=== PATIENT | female | born 1970 | race Caucasian/White ===

== ENCOUNTER 2018-10-10 14:29 | Emergency (ER) | payer MEDICAID, OTHER ==
[~2018-10-10] VITALS: Ht 149.9 cm; Wt 46.7 kg
[2018-10-10 14:52] VITALS: BP 113/78
--- NOTE | 2018-10-10 15:53 | NUR ---
Patient discharged to home in stable condition. Written and verbal after care instructions given. Written prescriptions provided to patient. Patient verbalizes understanding of instruction.
== END 2018-10-10 15:53 | disposition home or self-care (01) ==
LOC: ER 14:29
DX: R10.31 Right lower quadrant pain (principal); R14.0 Abdominal distension (gaseous); L40.9 Psoriasis, unspecified; K21.9 Gastro-esophageal reflux disease without esophagitis; F17.200 Nicotine dependence, unspecified, uncomplicated; Z98.890 Other specified postprocedural states; Z88.8 Allergy status to other drugs, medicaments and biological substances
CPT/HCPCS: Z7502

== ENCOUNTER 2018-11-20 15:12 | Emergency (ER) | payer OTHER ==
[~2018-11-20] VITALS: Ht 167.6 cm; Wt 52.6 kg
[~2018-11-20 15:12] MED LIST: CLOB15OI3 TP; FOLI1TAB16 PO; LEVO112T5 PO; MULT1TAB73 PO; OMEP20CA11 PO; THIA100T70 PO
--- NOTE | 2018-11-20 15:39 | NUR ---
CAME IN FOR ABD PAIN X OCTOBER, ADMITTED AT [facility], DISCHARGED ON 11/09/18. TO ER BED 10, HOOKED TO MONITOR, CHANGED TO GOWN, PROVIDED W WARM BLANKET, AWAITING MD HEATH.
--- NOTE | 2018-11-20 15:50 | NUR ---
PA FOSTER AT BEDSIDE
[2018-11-20 16:10] LABS: APPEARANCE,URINE Slightly Cloudy (CLEAR); BILIRUBIN,URINE LARGE (NEGATIVE); BLOOD, URINE Negative Ery/uL (NEGATIVE); COLOR,URINE Amber (YELLOW); KETONES,URINE 15 (NEGATIVE); LEUKOCYTE ESTERASE ,URINE Trace (NEGATIVE); NITRITE, URINE Positive (NEGATIVE); PROTEIN,URINE 100 mg/dl (NEGATIVE); UGLUCOSE 100 MG/DL mg/dL (NEGATIVE)
[2018-11-20 16:18] LABS: BACTERIA,URINE Moderate /HPF (None Seen); MUCUS,URINE Few /LPF (None Seen); SQUAMOUS EPITHELIAL CELL,UR Moderate /HPF (None Seen); URINE AMORPHOUS URATE Few /HPF (None Seen)
[2018-11-20 16:19] LABS: BASOPHILS % (AUTO) 0.3 % (0.0-2.0); EOSINOPHILS % (AUTO) 0.6 % (0.0-6.0); HEMATOCRIT 33 % (33-45); HEMOGLOBIN 11.4 g/dL (11.5-14.8); LYMPHOCYTES # (AUTO) 1.5 /CMM (0.8-4.8); LYMPHOCYTES % (AUTO) 17.9 % (20.0-44.0); MEAN CORPUSCULAR HGB CONC 35 g/dl (31.0-36.0); MEAN CORPUSCULAR VOLUME 104 fL (82-100); MONOCYTES # (AUTO) 0.6 /CMM (0.1-1.30); MONOCYTES % (AUTO) 7.3 % (2.0-12.0); NEUTROPHILS # (AUTO) 6.3 /CMM (1.8-8.9); NEUTROPHILS % (AUTO) 73.9 % (43.0-81.0); PLATELET COUNT (AUTO) 229 /CMM (150-450); RED BLOOD CELL COUNT(AUTO) 3.16 MIL/uL (4.0-5.2); WHITE BLOOD COUNT (AUTO) 8.6 K/uL (4.3-11.0)
[2018-11-20 16:32] LABS: BILIRUBIN,DIRECT 4.8 mg/dL (0.0-0.2); BILIRUBIN,TOTAL 6.2 mg/dL (0.2-1.0); CALCIUM, SERUM 8.7 mg/dL (8.5-10.1); CREATININE 0.6 mg/dL (0.6-1.3); TOTAL PROTEIN, SERUM 7.3 g/dL (6.4-8.2)
[2018-11-20 16:34] LABS: POTASSIUM 2.8 mmol/L (3.5-5.1)
--- NOTE | 2018-11-20 16:34 | NUR ---
K 2.8
[2018-11-20 16:55] LABS: LYMPHOCYTES % (MANUAL) 14 % (16-48); MONOCYTES % (MANUAL) 4 % (0-11.0); NEUTROPHILS % (MANUAL) 82 (42-76)
[2018-11-20] MEDS ORDERED: POTASSIUM CHLORIDE 20 MEQ TAB.PRT.SR PO ONE ×2 (16:55→17:00)
--- NOTE | 2018-11-20 17:32 | NUR ---
IV removed. Catheter intact and site benign. Pressure and 4x4 applied to site. No bleeding noted.Patient discharged to home in stable condition. Written and verbal after care instructions given. Patient verbalizes understanding of instruction.
[2018-11-20 17:41] VITALS: BP 102/68
== END 2018-11-20 17:45 | disposition home or self-care (01) ==
LOC: ER 15:16
DX: R14.0 Abdominal distension (gaseous) (principal); K74.69 Other cirrhosis of liver; F10.20 Alcohol dependence, uncomplicated; E87.6 Hypokalemia; K21.9 Gastro-esophageal reflux disease without esophagitis; F17.200 Nicotine dependence, unspecified, uncomplicated; Y90.9 Presence of alcohol in blood, level not specified; Z98.890 Other specified postprocedural states; Z88.1 Allergy status to other antibiotic agents
CPT/HCPCS: 36415; 80048-TC; 80076-TC; 81000-TC; 83690-TC; 84703-TC; 85025-TC; 87086-TC

== ENCOUNTER 2018-11-27 13:01 | Inpatient (IN) | payer OTHER ==
[~2018-11-27] VITALS: Ht 152.4 cm; Wt 48.1 kg
--- NOTE | 2018-11-27 13:05 | NUR ---
BIBRA 79 FRM HOME C/O ABD PAIN X 1WK GOT WORSE TODAY, ALSO C/O VOMITING. TO ER BED 6, HOOKED TO MONITOR, CHANGED TO GOWN, PROVIDED W WARM BLANKET, DR CARROLL AT BEDSIDE.
[2018-11-27] MEDS ORDERED: MORPHINE SULFATE INJ 2 MG/ML DISP.SYRIN ONE (13:21)
[2018-11-27] MEDS ORDERED: ONDANSETRON HCL/PF 4 MG/2 ML VIAL ONE (13:21)
[2018-11-27 13:26] LABS: BASOPHILS # (AUTO) 0.1 /CMM (0.0-0.2); BASOPHILS % (AUTO) 2.6 % (0.0-2.0); EOSINOPHILS % (AUTO) 1.2 % (0.0-6.0); HEMATOCRIT 38 % (33-45); LYMPHOCYTES # (AUTO) 1.2 /CMM (0.8-4.8); MEAN CORPUSCULAR HGB CONC 34 g/dl (31.0-36.0); MEAN CORPUSCULAR VOLUME 104 fL (82-100); MONOCYTES # (AUTO) 0.1 /CMM (0.1-1.30); MONOCYTES % (AUTO) 3.3 % (2.0-12.0); NEUTROPHILS # (AUTO) 2.6 /CMM (1.8-8.9); NEUTROPHILS % (AUTO) 63.9 % (43.0-81.0); PLATELET COUNT (AUTO) 260 /CMM (150-450); RED BLOOD CELL COUNT(AUTO) 3.68 MIL/uL (4.0-5.2); WHITE BLOOD COUNT (AUTO) 4.1 K/uL (4.3-11.0)
[2018-11-27] MEDS ORDERED: MORPHINE SULFATE INJ 2 MG/ML DISP.SYRIN IV ONE (13:30)
[2018-11-27] MEDS ORDERED: ONDANSETRON HCL/PF 4 MG/2 ML VIAL IVP ONE (13:30)
[2018-11-27 13:34] LABS: CALCIUM, SERUM 8.6 mg/dL (8.5-10.1); CARBON DIOXIDE 24 mmol/L (21-32); CHLORIDE 98 mmol/L (98-107); CREATININE 0.7 mg/dL (0.6-1.3); GLUCOSE 113 mg/dL (74-106); POTASSIUM 3.9 mmol/L (3.5-5.1); SODIUM SERUM 132 mmol/L (136-145); UREA NITROGEN, BLOOD 4 mg/dL (7-18)
[2018-11-27 13:39] LABS: ALANINE AMINOTRANSFERASE 54 U/L (12-78); ALBUMIN 2.3 g/dL (3.4-5.0); ALKALINE PHOSPHATASE 191 U/L (46-116); ASPARTATE AMINOTRANSFERASE 146 U/L (15-37); BILIRUBIN,DIRECT 4.3 mg/dL (0.0-0.2); BILIRUBIN,TOTAL 5.7 mg/dL (0.2-1.0); LIPASE 163 U/L (73-393); TOTAL PROTEIN, SERUM 8.3 g/dL (6.4-8.2)
--- NOTE | 2018-11-27 14:28 | NUR ---
US TECH AT BEDSIDE FOR PARENTESIS
--- NOTE | 2018-11-27 14:48 | NUR ---
PARENTESIS FLUID COLLECTED BY ANDREW ([employer]), SENT PARESNTESIS SAMPLE TO LABORATORY.
--- NOTE | 2018-11-27 16:25 | NUR ---
313-1 [facility]
--- NOTE | 2018-11-27 16:29 | NUR ---
CALLED [facility], PAGED DORCAS KAUR DNP
[2018-11-27] MEDS ORDERED: CEFTRIAXONE 1GM BAG (ER ONLY) 50 ML IV ONE ×2 (17:30→17:32)
--- NOTE | 2018-11-27 17:31 | NUR ---
REPORT GIVEN TO JOHANNA CAMARA OF MS UNIT
--- NOTE | 2018-11-27 18:02 | NUR ---
MS RN OPENING NOTES RECEIVED REPORT FROM [facility] ER NURSE. PATIENT TRANSFERRED TO ROOM 313-1 VIA GURNEY. ALERT AND ORIENTED X4. NO SOB OBSERVED. ON 02 @ 2L/MIN VIA NC. DENIES ANY C/O PAIN NOR DISCOMFORT AT THIS TIME. ABLE TO MOVE ALL EXTREMITIES SLOWLY. PER PATIENT LAST BM WAS 11/27/18 X1 SMALL. S/P PARACENTESIS WITH PUNCTURE SITE TO RT LAT ABD. PER PATIENT HAD PARACENTESIS LAST WEEK AT [facility] PUNCTURE SITE TO LEFT LAT ABD. DR. KAUR MADE AWARE OF ADMISSION TO UNIT AND FOR MED RECON. ORIENTED PATIENT TO ROOM, UNIT AND CALL LIGHT. BED IN LOWEST POSITION. CALL LIGHT WITHIN REACH. BED ALARM ON.
--- NOTE | 2018-11-27 18:02 | NUR ---
MS RN NOTES ADMISSION V/S B/P 90/60; HR: 92; R: 20 SPO2 96% RA.
--- NOTE | 2018-11-27 18:45 | NUR ---
DISREGARD PREVIOUS NOTES Addendum: 11/27/18 at 1909 by AUDI SWEET RN DISREGARD PREVIOUS NOTES FOR [id number]
--- NOTE | 2018-11-27 18:50 | NUR ---
MS RN NOTES PATIENT RESTING COMFORTABLY IN BED. NO EVIDENCE OF PAIN NOR DISCOMFORT. IN NO APPARENT DISTRESS. VALUABLES SENT TO SAFE. ENDORSED TO NEXT SHIFT FOR CONTINUATION OF CARE. BED IN LOWEST POSITION. CALL LIGHT WITH REACH.
[2018-11-27] MEDS ORDERED: Z GUARD REMEDY 2 OZ OINT TP PRN (19:30)
[2018-11-27] MEDS ORDERED: ONDANSETRON HCL/PF 4 MG/2 ML VIAL IVP PRN (19:30)
--- NOTE | 2018-11-27 20:11 | NUR ---
MS RN NOTES RECEIVED PATIENT AWAKE IN BED WITH NO DISTRESS NOTED. CALL LIGHT WITHIN REACH. PATIENT WITH C/O 9/10 ABDOMINAL PAIN, ORDER RECEIVED FOR PRN MORPHINE 2MG AND AWAITING FOR PHARMACY VERIFICATION. PERIPHERAL LINE INTACT AND PATENT. ENCOURAGED USE OF CALL LIGHT FOR ASSISTANCE AND VERBALIZED GOOD UNDERSTANDING. BED IN LOW LOCK SETTING. ALL BELONGINGS KEPT NEAR BEDSIDE. WILL CONTINUE TO MONITOR.
[2018-11-27] MEDS: PROPRANOLOL HCL 10 MG TABLET PO SCH (20:32)
[2018-11-27 20:58] VITALS: BP 86/57
[2018-11-27 21:30] VITALS: BP 92/56
[2018-11-27] MEDS: ACETAMINOPHEN 325 MG TABLET PO PRN (23:50)
[2018-11-28] VITALS: BP 83/52
[2018-11-28 05:26] VITALS: BP 86/52
--- NOTE | 2018-11-28 06:26 | NUR ---
MS RN NOTES PATIENT ASLEEP IN BED WITH NO DISTRESS NOTED. CALL LIGHT WITHIN REACH. NO FURTHER C/O PAIN OR DISCOMFORT. PERIPHERAL LINE INTACT AND PATENT. BED IN LOW LOCK SETTING. ALL BELONGINGS KEPT NEAR BEDSIDE. WILL CONTINUE TO MONITOR.
[2018-11-28 06:27] LABS: BASOPHILS % (AUTO) 0.1 % (0.0-2.0); HEMATOCRIT 30 % (33-45); HEMOGLOBIN 10.2 g/dL (11.5-14.8); LYMPHOCYTES # (AUTO) 1.6 /CMM (0.8-4.8); LYMPHOCYTES % (AUTO) 15.3 % (20.0-44.0); MEAN CORPUSCULAR HGB CONC 34 g/dl (31.0-36.0); MEAN CORPUSCULAR VOLUME 103 fL (82-100); MONOCYTES # (AUTO) 0.8 /CMM (0.1-1.30); MONOCYTES % (AUTO) 7.8 % (2.0-12.0); NEUTROPHILS % (AUTO) 76.8 % (43.0-81.0); PLATELET COUNT (AUTO) 174 /CMM (150-450); RED BLOOD CELL COUNT(AUTO) 2.89 MIL/uL (4.0-5.2); WHITE BLOOD COUNT (AUTO) 10.4 K/uL (4.3-11.0)
[2018-11-28 06:51] LABS: ALBUMIN 1.5 g/dL (3.4-5.0); BILIRUBIN,TOTAL 4.3 mg/dL (0.2-1.0); CREATININE 0.6 mg/dL (0.6-1.3); MAGNESIUM 1.8 mg/dL (1.8-2.4); POTASSIUM 4.4 mmol/L (3.5-5.1); TOTAL PROTEIN, SERUM 6.1 g/dL (6.4-8.2)
--- NOTE | 2018-11-28 07:30 | NUR ---
MS RN INITIAL NOTES PT ASLEEP, EASILY AROUSABLE. A/OX4. ON ROOM AIR. O2 SAT WNL. NO S/SX RESP DISTRESS. BP 88/54. RAC #22 IV PATENT/FLUSHED; SL. PT COMPLAINING OF PAIN IN ABD AREA. OFFERED PT TYLENOL. BED IN LOCKED/LOWEST POSITION. COMMODE AT BEDSIDE. CALL LIGHT IN REACH. WILL CONT TO MONITOR.
[2018-11-28 08:00] VITALS: BP 86/45
[2018-11-28] MEDS: PROPRANOLOL HCL 10 MG TABLET PO SCH ×2 (09:00→21:00)
[2018-11-28] MEDS: CLOBETASOL 0.05% OINT 30 GM TUBE TP SCH ×2 (09:00→16:12)
[2018-11-28] MEDS: FUROSEMIDE 40 MG TABLET PO SCH (09:00)
[2018-11-28] MEDS: SPIRONOLACTONE 25 MG TABLET PO SCH (09:00)
[2018-11-28] MEDS: ACETAMINOPHEN 325 MG TABLET PO PRN ×2 (09:45→22:57)
[2018-11-28] MEDS: PANTOPRAZOLE 40 MG TABLET.DR PO SCH (09:45)
[2018-11-28] MEDS: MULTIVITAMINS,THERAGRAN 1 UDTAB TABLET PO SCH (09:45)
[2018-11-28] MEDS: FOLIC ACID 1 MG TABLET PO SCH (09:45)
[2018-11-28] MEDS: LEVOTHYROXINE SODIUM 112 MCG TABLET PO SCH (09:45)
[2018-11-28] MEDS: THIAMINE HCL 100 MG TABLET PO SCH (09:45)
[2018-11-28] MEDS ORDERED: HYDROCORTISONE CR 30 GM TUBE RC PRN (11:00)
--- NOTE | 2018-11-28 11:00 | NUR ---
MS RN NOTES CONTACTED DR PEREYRA RE: LOW BP AND SODIUM LAB. AWARE. OK TO HOLD DIURETICS/BP MEDS. CLARIFIED PSORIASIS CREAM AND MD ORDERED ANUSOL HEMMORHOID CREAM PER PT REQUEST Q6H PRN. WILL CARRY OUT ORDERS.
[2018-11-28 16:00] VITALS: BP 103/60
[2018-11-28] MEDS: MORPHINE SULFATE INJ 2 MG/ML DISP.SYRIN IV PRN (16:13)
[2018-11-28] MEDS: CEFTRIAXONE 2 G in IV D5W 100 ML IV SCH (17:24)
--- NOTE | 2018-11-28 18:33 | NUR ---
MS RN CLOSING NOTES PT IN BED, NO C/O PAIN AT THIS TIME. NO RESP DISTRESS NOTED. HOB ELEVATED 30 DEG. PT TOLERATED TREATMENTS WELL. WILL ENDORSE TO PM NURSE FOR AFSANEH.CALL LIGHT IN REACH.
--- NOTE | 2018-11-28 19:44 | NUR ---
RN MS NOTES RECEIVED PT IN BED, AWAKE ALERT ORIENTED X4, BREATHING EVEN AND UNLABORED, NO SOB NOTED, NO COMPLAINT OF PAIN OR DISCOMFORT AT THIS TIME, IV ACCESS ON THE RAC #22 SL. BED IN LOWEST LOCKED POSITION, CALL LIGHT WITHIN REACH AT ALL TIMES, WILL CONTINUE TO MONITOR FREQUENTLY
[2018-11-28 20:41] VITALS: BP 92/50
[2018-11-29] MEDS: CEFTRIAXONE 2 G in IV D5W 100 ML IV SCH (05:30)
[2018-11-29] MEDS: MORPHINE SULFATE INJ 2 MG/ML DISP.SYRIN IV PRN ×3 (06:41→20:16)
--- NOTE | 2018-11-29 06:45 | NUR ---
RN CLOSING NOTES PT REMAINS IN BED AWAKE ALERT ORIENTED X4, BREATHING EVEN AND UNLABORED ON ROOM AIR SATING AT 98%. MORPHINE 2MG ADMINISTERED AT 0640 FOR PAIN. IV ACCESS ON THER AC 22 G PATENT AND FLUSHING. BED IN LOWEST LOCKED POSITION, CALL LIGHT WITHIN REACH AT ALL TIMES, WILL ENDORSE TO DAY NURSE FOR AFSANEH
[2018-11-29 07:10] LABS: BASOPHILS # (AUTO) 0.1 /CMM (0.0-0.2); BASOPHILS % (AUTO) 0.9 % (0.0-2.0); EOSINOPHILS % (AUTO) 0.2 % (0.0-6.0); HEMATOCRIT 28 % (33-45); HEMOGLOBIN 9.7 g/dL (11.5-14.8); LYMPHOCYTES # (AUTO) 1.5 /CMM (0.8-4.8); LYMPHOCYTES % (AUTO) 11.2 % (20.0-44.0); MEAN CORPUSCULAR HGB CONC 35 g/dl (31.0-36.0); MEAN CORPUSCULAR VOLUME 102 fL (82-100); MONOCYTES # (AUTO) 1.1 /CMM (0.1-1.30); MONOCYTES % (AUTO) 8.3 % (2.0-12.0); NEUTROPHILS # (AUTO) 10.3 /CMM (1.8-8.9); NEUTROPHILS % (AUTO) 79.4 % (43.0-81.0); PLATELET COUNT (AUTO) 149 /CMM (150-450); RED BLOOD CELL COUNT(AUTO) 2.76 MIL/uL (4.0-5.2)
[2018-11-29] MEDS: PANTOPRAZOLE 40 MG TABLET.DR PO SCH (07:30)
[2018-11-29 07:52] LABS: POTASSIUM 3.8 mmol/L (3.5-5.1)
[2018-11-29 07:53] LABS: BILIRUBIN,TOTAL 3.3 mg/dL (0.2-1.0); CALCIUM, SERUM 7.9 mg/dL (8.5-10.1); CREATININE 0.6 mg/dL (0.6-1.3)
[2018-11-29 07:59] LABS: ALBUMIN 1.4 g/dL (3.4-5.0)
[2018-11-29 08:00] VITALS: BP 99/51
--- NOTE | 2018-11-29 08:00 | NUR ---
MS/RN - Assessment Patient is awake, A/O x 4, no complaints overnight, denies abdominal pain at this time, no apparent distress, afebrile, stable on room air. Saline lock on the RAC is patent, intact, with no signs of infiltration. Labs reviewed, noted with increased WBC, low sodium and albumin level, will notify Md. Skin is intact except for psoriasis. Patient educated on plan of care. Will continue with current medical management.
[2018-11-29] MEDS: PROPRANOLOL HCL 10 MG TABLET PO SCH ×2 (08:29→20:58)
[2018-11-29] MEDS: SPIRONOLACTONE 25 MG TABLET PO SCH (08:29)
[2018-11-29] MEDS: FOLIC ACID 1 MG TABLET PO SCH (08:29)
[2018-11-29] MEDS: THIAMINE HCL 100 MG TABLET PO SCH (08:30)
[2018-11-29] MEDS: MULTIVITAMINS,THERAGRAN 1 UDTAB TABLET PO SCH (08:30)
[2018-11-29] MEDS: FUROSEMIDE 40 MG TABLET PO SCH (08:30)
[2018-11-29] MEDS: LEVOTHYROXINE SODIUM 112 MCG TABLET PO SCH (08:30)
[2018-11-29] MEDS: CLOBETASOL 0.05% OINT 30 GM TUBE TP SCH ×2 (09:00→17:42)
--- NOTE | 2018-11-29 09:15 | NUR ---
MS/RN - Consent Patient signed consent for MRI and MRCP abdomen. Breakfast held for procedure, placed on NPO.
--- NOTE | 2018-11-29 10:15 | NUR ---
MS/RN - Notes Patient taken to radiology for MRCP/MRI abdomen in no acute distress with good IV line on the RAC.
--- NOTE | 2018-11-29 11:30 | NUR ---
MS/RN - Notes Patient returned to room, early lunch tray given, denies abdominal pain at this time.
[2018-11-29] MEDS ORDERED: GADOTERIDOL 279.3 MG/ML VIAL IV ONE (14:15)
[2018-11-29 16:00] VITALS: BP 104/51
--- NOTE | 2018-11-29 18:17 | NUR ---
MS/RN - End of shift summary Patient is alert and oriented throughout the shift, not in any form distress, remain afebrile, denies abdominal pain, no c/o nausea/vomiting. Patient updated on treatment plan. Will endorse to shift production associate for continuity of care.
[2018-11-29 20:32] VITALS: BP 117/73
[2018-11-30] MEDS: MORPHINE SULFATE INJ 2 MG/ML DISP.SYRIN IV PRN ×2 (01:27→08:05)
--- NOTE | 2018-11-30 05:46 | NUR ---
RN CLOSING NOTES PT REMAINS IN BED AWAKE ALERT ORIENTED X4, BREATHING EVEN AND UNLABORED ON ROOM AIR SATING AT 98%. IV ACCESS ON THER AC 22 G PATENT AND FLUSHING. BED IN LOWEST LOCKED POSITION, CALL LIGHT WITHIN REACH AT ALL TIMES, WILL ENDORSE TO DAY NURSE FOR AFSANEH
[2018-11-30] MEDS: PANTOPRAZOLE 40 MG TABLET.DR PO SCH (07:40)
--- NOTE | 2018-11-30 07:40 | NUR ---
MS/RN - Assessment Patient is awake, A/O x 4, no complaints overnight, denies abdominal pain at this time, no apparent distress, afebrile, stable on room air. Saline lock on the RAC is patent, intact, with no signs of infiltration. No labs today. Patient educated on plan of care. Will continue with current medical management.
[2018-11-30 08:00] VITALS: BP 113/67
[2018-11-30] MEDS: LEVOTHYROXINE SODIUM 112 MCG TABLET PO SCH (08:04)
[2018-11-30] MEDS: MULTIVITAMINS,THERAGRAN 1 UDTAB TABLET PO SCH (08:04)
[2018-11-30] MEDS: THIAMINE HCL 100 MG TABLET PO SCH (08:04)
[2018-11-30] MEDS: CLOBETASOL 0.05% OINT 30 GM TUBE TP SCH ×2 (08:05→17:25)
[2018-11-30] MEDS: FOLIC ACID 1 MG TABLET PO SCH (08:06)
[2018-11-30] MEDS: PROPRANOLOL HCL 10 MG TABLET PO SCH (08:06)
[2018-11-30] MEDS: FUROSEMIDE 40 MG TABLET PO SCH (08:07)
[2018-11-30] MEDS: SPIRONOLACTONE 25 MG TABLET PO SCH (08:07)
[2018-11-30 08:52] LABS: BASOPHILS # (AUTO) 0.1 /CMM (0.0-0.2); BASOPHILS % (AUTO) 0.3 % (0.0-2.0); EOSINOPHILS % (AUTO) 0.5 % (0.0-6.0); HEMATOCRIT 30 % (33-45); HEMOGLOBIN 10.2 g/dL (11.5-14.8); LYMPHOCYTES # (AUTO) 2.1 /CMM (0.8-4.8); LYMPHOCYTES % (AUTO) 14.2 % (20.0-44.0); MEAN CORPUSCULAR HGB CONC 34 g/dl (31.0-36.0); MEAN CORPUSCULAR VOLUME 102 fL (82-100); MONOCYTES # (AUTO) 1.5 /CMM (0.1-1.30); MONOCYTES % (AUTO) 10.5 % (2.0-12.0); NEUTROPHILS % (AUTO) 74.5 % (43.0-81.0); PLATELET COUNT (AUTO) 159 /CMM (150-450); WHITE BLOOD COUNT (AUTO) 14.7 K/uL (4.3-11.0)
[2018-11-30 09:05] LABS: ALBUMIN 1.5 g/dL (3.4-5.0); BILIRUBIN,TOTAL 3.7 mg/dL (0.2-1.0); CALCIUM, SERUM 7.9 mg/dL (8.5-10.1); CREATININE 0.6 mg/dL (0.6-1.3); MAGNESIUM 1.8 mg/dL (1.8-2.4); PHOSPHORUS 2.4 mg/dL (2.5-4.9); TOTAL PROTEIN, SERUM 6.2 g/dL (6.4-8.2)
[2018-11-30] MEDS ORDERED: IV NS 0.9% 1,000 ML IV ONE (11:00)
--- NOTE | 2018-11-30 11:00 | NUR ---
MS/RN - Paracentesis US guided paracentesis done at bedside, 2300 ml of yellow fluid removed from the right lower quadrant peritoneal cavity. Patient tolerated procedure well.
[2018-11-30] MEDS ORDERED: K PHOS NEUTRAL 250 MG TABLET PO ONE (12:00)
[2018-11-30 12:10] LABS: AFP, TUMOR MARKER 3.7 ng/mL (0.0-8.3)
[2018-11-30 16:00] VITALS: BP 102/61
--- NOTE | 2018-11-30 19:02 | NUR ---
MS/RN - Discharge Patient is alert and oriented throughout the shift, discharged home in stable condition, remain afebrile, abdominal pain controlled, denies n/v, not in any form of distress, ambulatory with steady gait. Reviewed discharge instructions with patient and mother Lor both verbalized full understanding of all teachings including medications and follow-up care with PCP and GI in 1 week. Patient advised to seek immediate medical attention for worsening symptoms, chest pain, shortness of breath, palpitations, abdominal pain/distention, intractable nausea and vomiting, diarrhea, hematochezia, melena, weakness, loss of consciousness, neurological deficit, or any other emergent concerns. Patient educated on the importance of limiting her fluid intake to 500 ml/day. All belongings with patient and she deny any missing items. Patient refused discharge pictures to be taken. Saline lock removed on the RAC with catheter tip intact, no redness, no swelling noted at the site. Discharge paperwork signed and copies were given per protocol. Patient left the unit at 18:40 via private car.
== END 2018-11-30 18:49 | disposition home or self-care (01) | DRG 248 ==
LOC: ER 13:01 → MED 16:48
PROVIDERS: ADMIT Nurse Practitioner Acute Care; ATTEND Internal Medicine
PROC: 0W9G3ZZ Drainage of Peritoneal Cavity, Percutaneous Approach (ICD-10-PCS; principal; 2018-11-27)
DX: K65.2 Spontaneous bacterial peritonitis (principal); E43 Unspecified severe protein-calorie malnutrition; D61.818 Other pancytopenia; D68.9 Coagulation defect, unspecified; E87.1 Hypo-osmolality and hyponatremia; R16.0 Hepatomegaly, not elsewhere classified; K70.31 Alcoholic cirrhosis of liver with ascites; K21.9 Gastro-esophageal reflux disease without esophagitis; E03.9 Hypothyroidism, unspecified; L40.9 Psoriasis, unspecified; F32.9 Major depressive disorder, single episode, unspecified; Z88.1 Allergy status to other antibiotic agents; Z79.899 Other long term (current) drug therapy; F10.10 Alcohol abuse, uncomplicated; Y90.9 Presence of alcohol in blood, level not specified
CPT/HCPCS: 36415; 74181-TC; 74183-TC; 76942-TC; 80048-TC; 80053-TC; 80061-TC; 80076-TC; 82105; 82150-TC; 82378; 82728-TC; 83540-TC; 83605-TC; 83690-TC; 83735-TC; 83935-TC; 84100-TC; 85025-TC; 85730-TC; 86301; 87040-TC; 87070-TC; 87081-TC; 87186-TC; 89051-TC; A9579; G0378; J0696; J2270; J2405; J7030; J7060

== ENCOUNTER 2018-12-05 14:05 | Inpatient (IN) | payer OTHER ==
[~2018-12-05] VITALS: Ht 152.4 cm; Wt 45.4 kg
[2018-12-05 15:00] LABS: BASOPHILS # (AUTO) 0.1 /CMM (0.0-0.2); BASOPHILS % (AUTO) 0.4 % (0.0-2.0); EOSINOPHILS % (AUTO) 0.7 % (0.0-6.0); HEMATOCRIT 31 % (33-45); HEMOGLOBIN 10.5 g/dL (11.5-14.8); LYMPHOCYTES # (AUTO) 1.8 /CMM (0.8-4.8); LYMPHOCYTES % (AUTO) 9.3 % (20.0-44.0); MEAN CORPUSCULAR HGB CONC 34 g/dl (31.0-36.0); MEAN CORPUSCULAR VOLUME 102 fL (82-100); MONOCYTES # (AUTO) 1.2 /CMM (0.1-1.30); MONOCYTES % (AUTO) 6.4 % (2.0-12.0); NEUTROPHILS # (AUTO) 16.3 /CMM (1.8-8.9); NEUTROPHILS % (AUTO) 83.2 % (43.0-81.0); PLATELET COUNT (AUTO) 223 /CMM (150-450); RED BLOOD CELL COUNT(AUTO) 3.04 MIL/uL (4.0-5.2); WHITE BLOOD COUNT (AUTO) 19.5 K/uL (4.3-11.0)
[2018-12-05] MEDS ORDERED: PIPERACILLIN /TAZOBACTAM 3.375 G in IV D5W 50 ML IV ONE (17:00)
[2018-12-05] MEDS ORDERED: MAG HYDROX/AL HYDROX/SIMETH 30 ML UDC PO PRN (17:30)
[2018-12-05] MEDS ORDERED: Z GUARD REMEDY 2 OZ OINT TP PRN (17:30)
[2018-12-05 18:10] LABS: CALCIUM, SERUM 7.9 mg/dL (8.5-10.1); CREATININE 1.9 mg/dL (0.6-1.3); POTASSIUM 4.2 mmol/L (3.5-5.1)
[2018-12-05 18:26] LABS: BILIRUBIN,DIRECT 2.4 mg/dL (0.0-0.2); BILIRUBIN,TOTAL 3.1 mg/dL (0.2-1.0)
[2018-12-05 18:27] LABS: ALBUMIN 1.6 g/dL (3.4-5.0); TOTAL PROTEIN, SERUM 6.9 g/dL (6.4-8.2)
[2018-12-05 20:00] VITALS: BP 94/52
[2018-12-05] MEDS ORDERED: CEFEPIME 1 GM in IV D5W 100 ML IV SCH (21:00)
[2018-12-05] MEDS ORDERED: ZOLPIDEM TARTRATE 5 MG TABLET PO PRN (21:00)
[2018-12-05 21:37] LABS: APPEARANCE,URINE Clear (CLEAR); BILIRUBIN,URINE SMALL (NEGATIVE); BLOOD, URINE Negative Ery/uL (NEGATIVE); COLOR,URINE Dark (YELLOW); KETONES,URINE Trace (NEGATIVE); LEUKOCYTE ESTERASE ,URINE Negative (NEGATIVE); NITRITE, URINE Negative (NEGATIVE); PH,URINE 5.5 (5.0-8.0); PROTEIN,URINE Negative (NEGATIVE); UGLUCOSE Negative (NEGATIVE); UROBILINOGEN,URINE 0.2 EU/dL (0.2)
[2018-12-05] MEDS: CEFEPIME 1 GM in IV D5W 50 ML IV SCH (21:45)
[2018-12-05 21:53] LABS: RBC,URINE 0-2 /HPF (0-2); WBC,URINE 0-3 /HPF (0-3)
[2018-12-05 21:54] LABS: BACTERIA,URINE Moderate /HPF (None Seen); SQUAMOUS EPITHELIAL CELL,UR Moderate /HPF (None Seen)
[2018-12-06] MEDS: CEFEPIME 1 GM in IV D5W 50 ML IV SCH ×3 (04:58→20:48)
[2018-12-06 06:27] LABS: BASOPHILS # (AUTO) 0.1 /CMM (0.0-0.2); BASOPHILS % (AUTO) 0.4 % (0.0-2.0); EOSINOPHILS % (AUTO) 0.7 % (0.0-6.0); HEMATOCRIT 30 % (33-45); HEMOGLOBIN 10.3 g/dL (11.5-14.8); LYMPHOCYTES # (AUTO) 2.1 /CMM (0.8-4.8); LYMPHOCYTES % (AUTO) 11.1 % (20.0-44.0); MEAN CORPUSCULAR HGB CONC 34 g/dl (31.0-36.0); MEAN CORPUSCULAR VOLUME 101 fL (82-100); MONOCYTES % (AUTO) 5.6 % (2.0-12.0); NEUTROPHILS # (AUTO) 15.3 /CMM (1.8-8.9); NEUTROPHILS % (AUTO) 82.2 % (43.0-81.0); PLATELET COUNT (AUTO) 201 /CMM (150-450); RED BLOOD CELL COUNT(AUTO) 2.98 MIL/uL (4.0-5.2); WHITE BLOOD COUNT (AUTO) 18.6 K/uL (4.3-11.0)
[2018-12-06 07:39] LABS: THYROID STIMULATING HORMONE 0.193 uIU/mL (0.358-3.74)
[2018-12-06 07:46] LABS: BILIRUBIN,TOTAL 3.1 mg/dL (0.2-1.0); CALCIUM, SERUM 7.8 mg/dL (8.5-10.1); CREATININE 1.7 mg/dL (0.6-1.3); PHOSPHORUS 4.6 mg/dL (2.5-4.9); POTASSIUM 4.2 mmol/L (3.5-5.1); TOTAL PROTEIN, SERUM 6.3 g/dL (6.4-8.2)
[2018-12-06 07:47] LABS: ALBUMIN 1.4 g/dL (3.4-5.0)
[2018-12-06 08:00] VITALS: BP_SYST 115; BP_SYST 83; BP_DIAS 41; BP_DIAS 71
[2018-12-06] MEDS: PANTOPRAZOLE 40 MG TABLET.DR PO SCH (08:22)
[2018-12-06] MEDS: LEVOTHYROXINE SODIUM 112 MCG TABLET PO SCH (08:22)
[2018-12-06] MEDS: THIAMINE HCL 100 MG TABLET PO SCH (08:22)
[2018-12-06] MEDS: MULTIVITAMINS,THERAGRAN 1 UDTAB TABLET PO SCH (08:22)
[2018-12-06 09:58] VITALS: BP 83/47
[2018-12-06] MEDS: ALBUMIN 25% 25 GM in PREMIX 1 EA IV SCH ×2 (11:50→23:15)
[2018-12-06 16:33] LABS: URINE SODIUM, RANDOM < 5 mmol/l (40-220)
[2018-12-06 16:44] LABS: OSMOLALITY,URINE 473 mOS/kg (340-1090)
[2018-12-06 20:00] VITALS: BP 96/56
[2018-12-07] MEDS: CEFEPIME 1 GM in IV D5W 50 ML IV SCH ×2 (05:57→12:09)
[2018-12-07 06:50] LABS: THYROID STIMULATING HORMONE 0.141 uIU/mL (0.358-3.74); URIC ACID 5.8 mg/dL (2.6-7.2)
[2018-12-07 08:00] VITALS: BP 98/41
[2018-12-07] MEDS: MULTIVITAMINS,THERAGRAN 1 UDTAB TABLET PO SCH (08:06)
[2018-12-07] MEDS: LEVOTHYROXINE SODIUM 112 MCG TABLET PO SCH (08:06)
[2018-12-07] MEDS: PANTOPRAZOLE 40 MG TABLET.DR PO SCH (08:06)
[2018-12-07] MEDS: THIAMINE HCL 100 MG TABLET PO SCH (08:07)
[2018-12-07 08:08] LABS: OSMOLALITY,URINE 392 mOS/kg (340-1090)
[2018-12-07 08:15] LABS: URINE SODIUM, RANDOM < 5 mmol/l (40-220)
[2018-12-07 08:31] LABS: CALCIUM, SERUM 7.8 mg/dL (8.5-10.1); CREATININE 1.5 mg/dL (0.6-1.3); MAGNESIUM 2.1 mg/dL (1.8-2.4); PHOSPHORUS 3.6 mg/dL (2.5-4.9); POTASSIUM 3.8 mmol/L (3.5-5.1)
[2018-12-07] MEDS ORDERED: SODIUM CHLORIDE 1000 MG TABLET PO SCH (09:00)
[2018-12-07] MEDS: TRAMADOL HCL 50 MG TABLET PO PRN ×2 (12:25→19:42)
[2018-12-07 20:00] VITALS: BP 94/50
[2018-12-08 08:00] VITALS: BP 90/58
[2018-12-08] MEDS: THIAMINE HCL 100 MG TABLET PO SCH (08:37)
[2018-12-08] MEDS: LEVOTHYROXINE SODIUM 112 MCG TABLET PO SCH (08:37)
[2018-12-08] MEDS: MULTIVITAMINS,THERAGRAN 1 UDTAB TABLET PO SCH (08:37)
[2018-12-08] MEDS: PANTOPRAZOLE 40 MG TABLET.DR PO SCH (08:37)
[2018-12-08 08:47] LABS: CALCIUM, SERUM 8.1 mg/dL (8.5-10.1); CREATININE 1.5 mg/dL (0.6-1.3); MAGNESIUM 2.1 mg/dL (1.8-2.4); PHOSPHORUS 3.8 mg/dL (2.5-4.9)
[2018-12-08 08:59] LABS: BASOPHILS # (AUTO) 0.1 /CMM (0.0-0.2); BASOPHILS % (AUTO) 0.5 % (0.0-2.0); HEMATOCRIT 30 % (33-45); HEMOGLOBIN 10.1 g/dL (11.5-14.8); LYMPHOCYTES # (AUTO) 1.9 /CMM (0.8-4.8); LYMPHOCYTES % (AUTO) 10.3 % (20.0-44.0); MEAN CORPUSCULAR HGB CONC 34 g/dl (31.0-36.0); MEAN CORPUSCULAR VOLUME 103 fL (82-100); MONOCYTES # (AUTO) 1.2 /CMM (0.1-1.30); MONOCYTES % (AUTO) 6.4 % (2.0-12.0); NEUTROPHILS # (AUTO) 15.2 /CMM (1.8-8.9); NEUTROPHILS % (AUTO) 81.8 % (43.0-81.0); PLATELET COUNT (AUTO) 180 /CMM (150-450); RED BLOOD CELL COUNT(AUTO) 2.92 MIL/uL (4.0-5.2); WHITE BLOOD COUNT (AUTO) 18.5 K/uL (4.3-11.0)
[2018-12-08 16:00] VITALS: BP 96/55
[2018-12-08 20:22] VITALS: BP 95/55
[2018-12-09 07:04] LABS: BASOPHILS # (AUTO) 0.1 /CMM (0.0-0.2); BASOPHILS % (AUTO) 0.5 % (0.0-2.0); EOSINOPHILS % (AUTO) 0.7 % (0.0-6.0); HEMATOCRIT 27 % (33-45); HEMOGLOBIN 9.3 g/dL (11.5-14.8); LYMPHOCYTES # (AUTO) 1.8 /CMM (0.8-4.8); LYMPHOCYTES % (AUTO) 10.6 % (20.0-44.0); MEAN CORPUSCULAR HGB CONC 35 g/dl (31.0-36.0); MEAN CORPUSCULAR VOLUME 101 fL (82-100); MONOCYTES # (AUTO) 1.4 /CMM (0.1-1.30); MONOCYTES % (AUTO) 8.3 % (2.0-12.0); NEUTROPHILS # (AUTO) 13.7 /CMM (1.8-8.9); NEUTROPHILS % (AUTO) 79.9 % (43.0-81.0); PLATELET COUNT (AUTO) 189 /CMM (150-450); RED BLOOD CELL COUNT(AUTO) 2.67 MIL/uL (4.0-5.2); WHITE BLOOD COUNT (AUTO) 17.1 K/uL (4.3-11.0)
[2018-12-09 07:27] LABS: CALCIUM, SERUM 7.8 mg/dL (8.5-10.1); CREATININE 1.6 mg/dL (0.6-1.3); MAGNESIUM 2.2 mg/dL (1.8-2.4); PHOSPHORUS 3.6 mg/dL (2.5-4.9); POTASSIUM 3.9 mmol/L (3.5-5.1)
[2018-12-09] MEDS: PANTOPRAZOLE 40 MG TABLET.DR PO SCH (07:48)
[2018-12-09 08:00] VITALS: BP 81/47
[2018-12-09] MEDS: THIAMINE HCL 100 MG TABLET PO SCH (08:34)
[2018-12-09] MEDS: MULTIVITAMINS,THERAGRAN 1 UDTAB TABLET PO SCH (08:34)
[2018-12-09] MEDS: LEVOTHYROXINE SODIUM 112 MCG TABLET PO SCH (08:34)
[2018-12-09] MEDS: MENTHOL/CETYLPYRD (CEPACOL) 1 LOZ LOZENGE PO PRN ×2 (10:19→20:11)
[2018-12-09] MEDS: ENSURE ENLIVE 237 ML LIQUID (VANILLA) PO SCH ×2 (12:13→16:40)
[2018-12-09 16:00] VITALS: BP 93/49
[2018-12-09 20:00] VITALS: BP 92/48
[2018-12-10 07:44] LABS: ALBUMIN 1.9 g/dL (3.4-5.0); BILIRUBIN,TOTAL 4.2 mg/dL (0.2-1.0); CALCIUM, SERUM 7.9 mg/dL (8.5-10.1); CREATININE 1.7 mg/dL (0.6-1.3); POTASSIUM 4.2 mmol/L (3.5-5.1); TOTAL PROTEIN, SERUM 6.2 g/dL (6.4-8.2)
[2018-12-10] MEDS: PANTOPRAZOLE 40 MG TABLET.DR PO SCH (07:55)
[2018-12-10 08:00] VITALS: BP 99/62
[2018-12-10] MEDS: ENSURE ENLIVE 237 ML LIQUID (VANILLA) PO SCH ×2 (08:48→16:50)
[2018-12-10] MEDS: THIAMINE HCL 100 MG TABLET PO SCH (08:49)
[2018-12-10] MEDS: MULTIVITAMINS,THERAGRAN 1 UDTAB TABLET PO SCH (08:49)
[2018-12-10] MEDS: LEVOTHYROXINE SODIUM 112 MCG TABLET PO SCH ×2 (08:49→09:17)
[2018-12-10] MEDS: SPIRONOLACTONE 25 MG TABLET PO SCH (10:58)
[2018-12-10] MEDS: FUROSEMIDE 20 MG TABLET PO SCH (10:58)
[2018-12-10] MEDS: ALBUMIN 25% 25 GM in PREMIX 1 EA IV SCH ×2 (10:59→22:12)
[2018-12-10 16:00] VITALS: BP 84/50
[2018-12-10] MEDS ORDERED: ACETAMINOPHEN ES 500 MG TABLET PO ONE (17:30)
[2018-12-10 20:00] VITALS: BP 86/49
[2018-12-10] MEDS: MORPHINE SULFATE INJ 2 MG/ML DISP.SYRIN IV PRN (23:58)
[2018-12-11] MEDS: PANTOPRAZOLE 40 MG TABLET.DR PO SCH (06:30)
[2018-12-11 08:00] VITALS: BP 90/52
[2018-12-11] MEDS: SPIRONOLACTONE 25 MG TABLET PO SCH (08:44)
[2018-12-11] MEDS: MULTIVITAMINS,THERAGRAN 1 UDTAB TABLET PO SCH (08:44)
[2018-12-11] MEDS: LEVOTHYROXINE SODIUM 112 MCG TABLET PO SCH (08:44)
[2018-12-11] MEDS: THIAMINE HCL 100 MG TABLET PO SCH (08:44)
[2018-12-11] MEDS: ENSURE ENLIVE 237 ML LIQUID (VANILLA) PO SCH ×2 (08:45→16:26)
[2018-12-11] MEDS: FUROSEMIDE 20 MG TABLET PO SCH (08:45)
[2018-12-11 12:47] LABS: BASOPHILS # (AUTO) 0.1 /CMM (0.0-0.2); BASOPHILS % (AUTO) 0.4 % (0.0-2.0); EOSINOPHILS % (AUTO) 0.1 % (0.0-6.0); HEMATOCRIT 28 % (33-45); HEMOGLOBIN 9.5 g/dL (11.5-14.8); LYMPHOCYTES # (AUTO) 1.2 /CMM (0.8-4.8); LYMPHOCYTES % (AUTO) 5.4 % (20.0-44.0); MEAN CORPUSCULAR HGB CONC 34 g/dl (31.0-36.0); MEAN CORPUSCULAR VOLUME 101 fL (82-100); MONOCYTES # (AUTO) 1.6 /CMM (0.1-1.30); MONOCYTES % (AUTO) 7.2 % (2.0-12.0); NEUTROPHILS # (AUTO) 19.1 /CMM (1.8-8.9); NEUTROPHILS % (AUTO) 86.9 % (43.0-81.0); PLATELET COUNT (AUTO) 213 /CMM (150-450); RED BLOOD CELL COUNT(AUTO) 2.81 MIL/uL (4.0-5.2); WHITE BLOOD COUNT (AUTO) 22.1 K/uL (4.3-11.0)
[2018-12-11 13:00] VITALS: BP 98/40
[2018-12-11 13:04] LABS: ALBUMIN 2.5 g/dL (3.4-5.0); BILIRUBIN,TOTAL 4.8 mg/dL (0.2-1.0); CALCIUM, SERUM 8.2 mg/dL (8.5-10.1); CREATININE 2.2 mg/dL (0.6-1.3); MAGNESIUM 2.1 mg/dL (1.8-2.4); PHOSPHORUS 3.8 mg/dL (2.5-4.9); POTASSIUM 3.9 mmol/L (3.5-5.1); TOTAL PROTEIN, SERUM 6.3 g/dL (6.4-8.2)
[2018-12-11] MEDS: MORPHINE SULFATE INJ 2 MG/ML DISP.SYRIN IV PRN ×2 (16:27→21:13)
[2018-12-11 20:00] VITALS: BP 100/60
[2018-12-12] MEDS: MORPHINE SULFATE INJ 2 MG/ML DISP.SYRIN IV PRN (01:21)
[2018-12-12] MEDS: ONDANSETRON HCL/PF 4 MG/2 ML VIAL IVP PRN ×2 (01:24→23:48)
[2018-12-12] MEDS: PANTOPRAZOLE 40 MG TABLET.DR PO SCH (06:29)
[2018-12-12 07:11] LABS: BASOPHILS # (AUTO) 0.1 /CMM (0.0-0.2); BASOPHILS % (AUTO) 0.3 % (0.0-2.0); EOSINOPHILS % (AUTO) 0.2 % (0.0-6.0); HEMATOCRIT 27 % (33-45); HEMOGLOBIN 9.3 g/dL (11.5-14.8); LYMPHOCYTES # (AUTO) 1.8 /CMM (0.8-4.8); LYMPHOCYTES % (AUTO) 8.2 % (20.0-44.0); MEAN CORPUSCULAR HGB CONC 35 g/dl (31.0-36.0); MEAN CORPUSCULAR VOLUME 100 fL (82-100); MONOCYTES # (AUTO) 2.2 /CMM (0.1-1.30); MONOCYTES % (AUTO) 9.9 % (2.0-12.0); NEUTROPHILS % (AUTO) 81.4 % (43.0-81.0); PLATELET COUNT (AUTO) 234 /CMM (150-450); RED BLOOD CELL COUNT(AUTO) 2.68 MIL/uL (4.0-5.2); WHITE BLOOD COUNT (AUTO) 22.1 K/uL (4.3-11.0)
[2018-12-12 07:34] LABS: ALBUMIN 2.4 g/dL (3.4-5.0); BILIRUBIN,TOTAL 4.1 mg/dL (0.2-1.0); CALCIUM, SERUM 8.4 mg/dL (8.5-10.1); CREATININE 2.8 mg/dL (0.6-1.3); MAGNESIUM 2.2 mg/dL (1.8-2.4); PHOSPHORUS 4.6 mg/dL (2.5-4.9); POTASSIUM 4.7 mmol/L (3.5-5.1); TOTAL PROTEIN, SERUM 6.5 g/dL (6.4-8.2)
[2018-12-12 08:00] VITALS: BP 95/52
[2018-12-12] MEDS: SPIRONOLACTONE 25 MG TABLET PO SCH (08:57)
[2018-12-12] MEDS: THIAMINE HCL 100 MG TABLET PO SCH (08:57)
[2018-12-12] MEDS: LEVOTHYROXINE SODIUM 112 MCG TABLET PO SCH (08:57)
[2018-12-12] MEDS: FUROSEMIDE 20 MG TABLET PO SCH (08:57)
[2018-12-12] MEDS: ENSURE ENLIVE 237 ML LIQUID (VANILLA) PO SCH ×2 (08:57→16:59)
[2018-12-12] MEDS: MULTIVITAMINS,THERAGRAN 1 UDTAB TABLET PO SCH (08:57)
[2018-12-12] MEDS: MIDODRINE HCL (5MG) 5 MG TABLET PO SCH ×3 (10:28→16:59)
[2018-12-12] MEDS: ALBUMIN 25% 25 GM in PREMIX 1 EA IV SCH ×2 (12:18→18:19)
[2018-12-12] MEDS: OCTREOTIDE 100 MCG/ML VIAL SQ SCH ×2 (12:54→16:59)
[2018-12-12 16:00] VITALS: BP 87/43
[2018-12-12] MEDS: MINERAL OIL/PETROLATUM,WHITE 120 GM JAR TP SCH (16:59)
[2018-12-12 19:53] VITALS: BP 92/50
[2018-12-12 20:00] VITALS: BP 92/50
[2018-12-12] MEDS ORDERED: LEVOFLOXACIN (250MG) 250 MG TABLET PO SCH (20:00)
[2018-12-12] MEDS: CEFTRIAXONE 1 G in IV D5W 50 ML IV SCH (20:57)
[2018-12-12] MEDS: TRAMADOL HCL 50 MG TABLET PO PRN (23:51)
[2018-12-13] MEDS: ALBUMIN 25% 25 GM in PREMIX 1 EA IV SCH (02:26)
[2018-12-13] MEDS: MORPHINE SULFATE INJ 2 MG/ML DISP.SYRIN IV PRN (05:52)
[2018-12-13] MEDS: ONDANSETRON HCL/PF 4 MG/2 ML VIAL IVP PRN (05:54)
[2018-12-13] MEDS: PANTOPRAZOLE 40 MG TABLET.DR PO SCH (06:47)
[2018-12-13 07:38] LABS: BASOPHILS % (AUTO) 0.3 % (0.0-2.0); EOSINOPHILS % (AUTO) 0.2 % (0.0-6.0); HEMATOCRIT 26 % (33-45); HEMOGLOBIN 9.2 g/dL (11.5-14.8); LYMPHOCYTES # (AUTO) 1.5 /CMM (0.8-4.8); LYMPHOCYTES % (AUTO) 8.8 % (20.0-44.0); MEAN CORPUSCULAR HGB CONC 35 g/dl (31.0-36.0); MEAN CORPUSCULAR VOLUME 100 fL (82-100); MONOCYTES # (AUTO) 1.9 /CMM (0.1-1.30); MONOCYTES % (AUTO) 10.6 % (2.0-12.0); NEUTROPHILS # (AUTO) 14.1 /CMM (1.8-8.9); NEUTROPHILS % (AUTO) 80.1 % (43.0-81.0); PLATELET COUNT (AUTO) 233 /CMM (150-450); RED BLOOD CELL COUNT(AUTO) 2.62 MIL/uL (4.0-5.2); WHITE BLOOD COUNT (AUTO) 17.6 K/uL (4.3-11.0)
[2018-12-13 07:55] LABS: ALBUMIN 3.2 g/dL (3.4-5.0); BILIRUBIN,TOTAL 4.2 mg/dL (0.2-1.0); CALCIUM, SERUM 8.6 mg/dL (8.5-10.1); CREATININE 3.9 mg/dL (0.6-1.3); MAGNESIUM 2.1 mg/dL (1.8-2.4); PHOSPHORUS 5.3 mg/dL (2.5-4.9); POTASSIUM 4.4 mmol/L (3.5-5.1); TOTAL PROTEIN, SERUM 6.5 g/dL (6.4-8.2)
[2018-12-13 08:00] VITALS: BP 88/46
[2018-12-13] MEDS: ENSURE ENLIVE 237 ML LIQUID (VANILLA) PO SCH ×2 (08:51→17:03)
[2018-12-13] MEDS: MINERAL OIL/PETROLATUM,WHITE 120 GM JAR TP SCH (08:52)
[2018-12-13] MEDS: LEVOTHYROXINE SODIUM 112 MCG TABLET PO SCH (08:57)
[2018-12-13] MEDS: THIAMINE HCL 100 MG TABLET PO SCH (08:57)
[2018-12-13] MEDS: MULTIVITAMINS,THERAGRAN 1 UDTAB TABLET PO SCH (08:58)
[2018-12-13] MEDS: MIDODRINE HCL (5MG) 5 MG TABLET PO SCH ×3 (08:59→17:03)
[2018-12-13] MEDS: TRAMADOL HCL 50 MG TABLET PO PRN (09:00)
[2018-12-13] MEDS: OCTREOTIDE 100 MCG/ML VIAL SQ SCH ×3 (10:51→17:08)
[2018-12-13 16:00] VITALS: BP 98/53
[2018-12-13 20:00] VITALS: BP 104/60
[2018-12-13] MEDS: CEFTRIAXONE 1 G in IV D5W 50 ML IV SCH (20:35)
[2018-12-14] VITALS (9 sets, daily range): BP systolic 83–101; BP diastolic 29–62
[2018-12-14 06:31] LABS: BASOPHILS # (AUTO) 0.2 /CMM (0.0-0.2); BASOPHILS % (AUTO) 0.7 % (0.0-2.0); EOSINOPHILS % (AUTO) 0.2 % (0.0-6.0); HEMATOCRIT 28 % (33-45); HEMOGLOBIN 9.4 g/dL (11.5-14.8); LYMPHOCYTES # (AUTO) 1.6 /CMM (0.8-4.8); LYMPHOCYTES % (AUTO) 7.5 % (20.0-44.0); MEAN CORPUSCULAR HGB CONC 34 g/dl (31.0-36.0); MEAN CORPUSCULAR VOLUME 101 fL (82-100); MONOCYTES # (AUTO) 1.8 /CMM (0.1-1.30); MONOCYTES % (AUTO) 8.3 % (2.0-12.0); NEUTROPHILS # (AUTO) 18.3 /CMM (1.8-8.9); NEUTROPHILS % (AUTO) 83.3 % (43.0-81.0); PLATELET COUNT (AUTO) 234 /CMM (150-450); RED BLOOD CELL COUNT(AUTO) 2.76 MIL/uL (4.0-5.2); WHITE BLOOD COUNT (AUTO) 21.9 K/uL (4.3-11.0)
[2018-12-14 07:20] LABS: CALCIUM, SERUM 8.3 mg/dL (8.5-10.1); MAGNESIUM 2.3 mg/dL (1.8-2.4); PHOSPHORUS 6.6 mg/dL (2.5-4.9)
[2018-12-14 07:25] LABS: POTASSIUM 5.3 mmol/L (3.5-5.1)
[2018-12-14] MEDS: LEVOTHYROXINE SODIUM 112 MCG TABLET PO SCH (08:19)
[2018-12-14] MEDS: OCTREOTIDE 100 MCG/ML VIAL SQ SCH ×3 (08:20→17:17)
[2018-12-14] MEDS: MULTIVITAMINS,THERAGRAN 1 UDTAB TABLET PO SCH (08:20)
[2018-12-14] MEDS: PANTOPRAZOLE 40 MG TABLET.DR PO SCH (08:20)
[2018-12-14] MEDS: MIDODRINE HCL (5MG) 5 MG TABLET PO SCH ×4 (08:27→17:17)
[2018-12-14] MEDS: THIAMINE HCL 100 MG TABLET PO SCH (08:27)
[2018-12-14] MEDS: ENSURE ENLIVE 237 ML LIQUID (VANILLA) PO SCH ×2 (08:27→17:28)
[2018-12-14] MEDS: MINERAL OIL/PETROLATUM,WHITE 120 GM JAR TP SCH (08:28)
[2018-12-14] MEDS: ONDANSETRON HCL/PF 4 MG/2 ML VIAL IVP PRN ×2 (08:48→17:18)
[2018-12-14] MEDS ORDERED: FEE PK DOSING 1 MIN EA MC ONE (19:43)
[2018-12-14] MEDS ORDERED: VANCOMYCIN 500 MG VIAL ONE (21:16)
[2018-12-14] MEDS ORDERED: MEROPENEM 500 MG VIAL IV ONE (21:17)
[2018-12-14] MEDS ORDERED: IV NS 0.9% 1,000 ML IV PRN (21:30)
[2018-12-14] MEDS ORDERED: NOREPINEPHRINE 8 MG in IV D5W 500 ML IV PRN (21:30)
[2018-12-14 21:33] LABS: BASOPHILS # (AUTO) 0.1 /CMM (0.0-0.2); BASOPHILS % (AUTO) 0.3 % (0.0-2.0); EOSINOPHILS % (AUTO) 0.2 % (0.0-6.0); HEMATOCRIT 28 % (33-45); HEMOGLOBIN 9.4 g/dL (11.5-14.8); LYMPHOCYTES # (AUTO) 1.7 /CMM (0.8-4.8); LYMPHOCYTES % (AUTO) 7.7 % (20.0-44.0); MEAN CORPUSCULAR HGB CONC 34 g/dl (31.0-36.0); MEAN CORPUSCULAR VOLUME 100 fL (82-100); MONOCYTES # (AUTO) 2.1 /CMM (0.1-1.30); MONOCYTES % (AUTO) 9.5 % (2.0-12.0); NEUTROPHILS # (AUTO) 18.6 /CMM (1.8-8.9); NEUTROPHILS % (AUTO) 82.3 % (43.0-81.0); PLATELET COUNT (AUTO) 262 /CMM (150-450); RED BLOOD CELL COUNT(AUTO) 2.79 MIL/uL (4.0-5.2); WHITE BLOOD COUNT (AUTO) 22.6 K/uL (4.3-11.0)
[2018-12-14 21:44] LABS: CALCIUM, SERUM 8.4 mg/dL (8.5-10.1); CREATININE 5.7 mg/dL (0.6-1.3); MAGNESIUM 2.2 mg/dL (1.8-2.4); PHOSPHORUS 7.6 mg/dL (2.5-4.9); POTASSIUM 5.1 mmol/L (3.5-5.1)
[2018-12-14] MEDS: VANCOMYCIN 500 MG in IV D5W 100 ML IV SCH (22:03)
[2018-12-14] MEDS: MEROPENEM 500 MG in IV NS 0.9% 50 ML IV SCH (22:04)
[2018-12-15] VITALS (27 sets, daily range): BP systolic 72–116; BP diastolic 43–69
[2018-12-15] MEDS ORDERED: NOREPINEPHRINE 8 MG in IV D5W 500 ML IV PRN (01:30)
[2018-12-15] MEDS ORDERED: ALBUMIN IV ONE (01:30)
[2018-12-15] MEDS ORDERED: ALBUMIN 5% 500 ML IV ONE (01:46)
[2018-12-15] MEDS: ALBUMIN 25% 25 GM in PREMIX 1 EA IV SCH ×3 (02:18→18:02)
[2018-12-15] MEDS: LACTULOSE 10 G/15 ML UDC (PYXIS) PO SCH ×4 (02:19→17:38)
[2018-12-15 04:29] LABS: BASOPHILS # (AUTO) 0.1 /CMM (0.0-0.2); BASOPHILS % (AUTO) 0.2 % (0.0-2.0); EOSINOPHILS % (AUTO) 0.2 % (0.0-6.0); HEMATOCRIT 24 % (33-45); HEMOGLOBIN 8.5 g/dL (11.5-14.8); LYMPHOCYTES # (AUTO) 1.9 /CMM (0.8-4.8); LYMPHOCYTES % (AUTO) 8.8 % (20.0-44.0); MEAN CORPUSCULAR HGB CONC 35 g/dl (31.0-36.0); MEAN CORPUSCULAR VOLUME 100 fL (82-100); MONOCYTES # (AUTO) 2.2 /CMM (0.1-1.30); MONOCYTES % (AUTO) 10.3 % (2.0-12.0); NEUTROPHILS # (AUTO) 17.1 /CMM (1.8-8.9); NEUTROPHILS % (AUTO) 80.5 % (43.0-81.0); PLATELET COUNT (AUTO) 224 /CMM (150-450); RED BLOOD CELL COUNT(AUTO) 2.44 MIL/uL (4.0-5.2); WHITE BLOOD COUNT (AUTO) 21.3 K/uL (4.3-11.0)
[2018-12-15 04:50] LABS: CALCIUM, SERUM 8.4 mg/dL (8.5-10.1); CREATININE 5.9 mg/dL (0.6-1.3); MAGNESIUM 2.2 mg/dL (1.8-2.4); PHOSPHORUS 7.8 mg/dL (2.5-4.9)
[2018-12-15 05:57] LABS: ABG BASE EXCESS -8.1 mmol/L; ABG OXYGEN SATURATION 93.6 % (92.0-98.5); ABG PCO2 25.9 mmHg (35.0-45.0); ABG PH 7.396 (7.350-7.450); ABG PO2 71.4 mmHg (75.0-100.0); AaDO2 97.7 mmHg; COHb 0.2 % (0.5-1.5); MetHb 0.6 % (0.0-1.5); O2Hb 92.9 % (94.0-97.0); SITE, ABG Right Brachial; VENT MODE, BG NASAL CANNULA
[2018-12-15] MEDS: PANTOPRAZOLE 40 MG TABLET.DR PO SCH (09:11)
[2018-12-15] MEDS: LEVOTHYROXINE SODIUM 112 MCG TABLET PO SCH (09:12)
[2018-12-15] MEDS: MEROPENEM 500 MG in IV NS 0.9% 50 ML IV SCH ×2 (09:12→21:12)
[2018-12-15] MEDS: MIDODRINE HCL (5MG) 5 MG TABLET PO SCH ×3 (09:12→17:38)
[2018-12-15] MEDS: THIAMINE HCL 100 MG TABLET PO SCH (09:13)
[2018-12-15] MEDS: MULTIVITAMINS,THERAGRAN 1 UDTAB TABLET PO SCH (09:13)
[2018-12-15] MEDS: ENSURE ENLIVE 237 ML LIQUID (VANILLA) PO SCH ×2 (09:13→17:38)
[2018-12-15] MEDS: OCTREOTIDE 100 MCG/ML VIAL SQ SCH ×3 (09:13→17:39)
[2018-12-15] MEDS: MINERAL OIL/PETROLATUM,WHITE 120 GM JAR TP SCH (09:13)
[2018-12-16] VITALS (83 sets, daily range): BP systolic 78–134; BP diastolic 34–85
[2018-12-16 04:27] LABS: BASOPHILS # (AUTO) 0.2 /CMM (0.0-0.2); BASOPHILS % (AUTO) 0.8 % (0.0-2.0); EOSINOPHILS % (AUTO) 0.8 % (0.0-6.0); HEMATOCRIT 26 % (33-45); HEMOGLOBIN 8.8 g/dL (11.5-14.8); LYMPHOCYTES # (AUTO) 1.9 /CMM (0.8-4.8); MEAN CORPUSCULAR HGB CONC 34 g/dl (31.0-36.0); MEAN CORPUSCULAR VOLUME 100 fL (82-100); MONOCYTES # (AUTO) 1.8 /CMM (0.1-1.30); MONOCYTES % (AUTO) 8.5 % (2.0-12.0); NEUTROPHILS # (AUTO) 16.8 /CMM (1.8-8.9); NEUTROPHILS % (AUTO) 80.9 % (43.0-81.0); PLATELET COUNT (AUTO) 178 /CMM (150-450); RED BLOOD CELL COUNT(AUTO) 2.58 MIL/uL (4.0-5.2); WHITE BLOOD COUNT (AUTO) 20.8 K/uL (4.3-11.0)
[2018-12-16 04:35] LABS: ALBUMIN 3.2 g/dL (3.4-5.0)
[2018-12-16 04:40] LABS: CALCIUM, SERUM 8.5 mg/dL (8.5-10.1); CREATININE 6.8 mg/dL (0.6-1.3); MAGNESIUM 2.4 mg/dL (1.8-2.4); POTASSIUM 5.1 mmol/L (3.5-5.1)
[2018-12-16 04:42] LABS: PHOSPHORUS 8.2 mg/dL (2.5-4.9)
[2018-12-16] MEDS: VANCOMYCIN 500 MG in IV D5W 100 ML IV SCH (08:21)
[2018-12-16] MEDS: MIDODRINE HCL (5MG) 5 MG TABLET PO SCH ×3 (08:23→17:04)
[2018-12-16] MEDS: THIAMINE HCL 100 MG TABLET PO SCH (08:24)
[2018-12-16] MEDS: LEVOTHYROXINE SODIUM 112 MCG TABLET PO SCH (08:24)
[2018-12-16] MEDS: OCTREOTIDE 100 MCG/ML VIAL SQ SCH ×3 (08:24→17:04)
[2018-12-16] MEDS: LACTULOSE 10 G/15 ML UDC (PYXIS) PO SCH ×5 (08:24→22:06)
[2018-12-16] MEDS: PANTOPRAZOLE 40 MG TABLET.DR PO SCH (08:24)
[2018-12-16] MEDS: ENSURE ENLIVE 237 ML LIQUID (VANILLA) PO SCH ×2 (08:24→17:00)
[2018-12-16] MEDS: MULTIVITAMINS,THERAGRAN 1 UDTAB TABLET PO SCH (08:24)
[2018-12-16] MEDS: MINERAL OIL/PETROLATUM,WHITE 120 GM JAR TP SCH (08:34)
[2018-12-16] MEDS: MEROPENEM 500 MG in IV NS 0.9% 50 ML IV SCH ×2 (09:31→21:01)
[2018-12-16] MEDS ORDERED: HYDROCORTISONE 1% CREAM 28.35 GM TUBE TP PRN (11:00)
[2018-12-16] MEDS ORDERED: HEPARIN SODIUM, PORCINE 5000 UNITS/1 ML VIAL IV ONE ×2 (19:30→21:30)
[2018-12-16] MEDS: MORPHINE SULFATE INJ 2 MG/ML DISP.SYRIN IV PRN (21:01)
[2018-12-16] MEDS ORDERED: HEPARIN SODIUM, PORCINE 5000 UNITS/1 ML VIAL ONE (21:12)
[2018-12-17] VITALS (75 sets, daily range): BP systolic 86–124; BP diastolic 33–94
[2018-12-17 04:50] LABS: BASOPHILS # (AUTO) 0.1 /CMM (0.0-0.2); BASOPHILS % (AUTO) 0.4 % (0.0-2.0); EOSINOPHILS % (AUTO) 0.6 % (0.0-6.0); HEMATOCRIT 25 % (33-45); HEMOGLOBIN 8.7 g/dL (11.5-14.8); LYMPHOCYTES # (AUTO) 2.2 /CMM (0.8-4.8); LYMPHOCYTES % (AUTO) 11.8 % (20.0-44.0); MEAN CORPUSCULAR HGB CONC 34 g/dl (31.0-36.0); MEAN CORPUSCULAR VOLUME 100 fL (82-100); MONOCYTES # (AUTO) 1.7 /CMM (0.1-1.30); MONOCYTES % (AUTO) 9.2 % (2.0-12.0); NEUTROPHILS # (AUTO) 14.6 /CMM (1.8-8.9); PLATELET COUNT (AUTO) 164 /CMM (150-450); RED BLOOD CELL COUNT(AUTO) 2.55 MIL/uL (4.0-5.2); WHITE BLOOD COUNT (AUTO) 18.7 K/uL (4.3-11.0)
[2018-12-17 05:00] LABS: CALCIUM, SERUM 8.4 mg/dL (8.5-10.1); MAGNESIUM 2.4 mg/dL (1.8-2.4)
[2018-12-17 05:19] LABS: CREATININE 7.9 mg/dL (0.6-1.3); PHOSPHORUS 8.9 mg/dL (2.5-4.9)
[2018-12-17] MEDS: PANTOPRAZOLE 40 MG TABLET.DR PO SCH (07:30)
[2018-12-17] MEDS: ENSURE ENLIVE 237 ML LIQUID (VANILLA) PO SCH ×2 (08:22→17:00)
[2018-12-17] MEDS: MIDODRINE HCL (5MG) 5 MG TABLET PO SCH ×3 (08:28→16:59)
[2018-12-17] MEDS: MULTIVITAMINS,THERAGRAN 1 UDTAB TABLET PO SCH (08:28)
[2018-12-17] MEDS: LEVOTHYROXINE SODIUM 112 MCG TABLET PO SCH (08:28)
[2018-12-17] MEDS: OCTREOTIDE 100 MCG/ML VIAL SQ SCH ×3 (08:28→16:59)
[2018-12-17] MEDS: LACTULOSE 10 G/15 ML UDC (PYXIS) PO SCH ×4 (08:28→20:44)
[2018-12-17] MEDS: THIAMINE HCL 100 MG TABLET PO SCH (08:29)
[2018-12-17] MEDS: MINERAL OIL/PETROLATUM,WHITE 120 GM JAR TP SCH (08:29)
[2018-12-17] MEDS: MEROPENEM 500 MG in IV NS 0.9% 50 ML IV SCH ×2 (09:00→20:44)
[2018-12-17] MEDS ORDERED: VANCOMYCIN POST DIALYSIS 500MG IV PRN ×4 (09:00→12:30)
[2018-12-17] MEDS: PHENYLEPHRINE/SHK LV/MO/PET,WH 30 GM TUBE RC PRN (17:31)
[2018-12-18] VITALS (39 sets, daily range): BP systolic 82–105; BP diastolic 45–87
[2018-12-18 04:41] LABS: BASOPHILS # (AUTO) 0.2 /CMM (0.0-0.2); BASOPHILS % (AUTO) 1.1 % (0.0-2.0); EOSINOPHILS % (AUTO) 0.5 % (0.0-6.0); HEMATOCRIT 23 % (33-45); HEMOGLOBIN 7.9 g/dL (11.5-14.8); LYMPHOCYTES # (AUTO) 1.8 /CMM (0.8-4.8); LYMPHOCYTES % (AUTO) 11.9 % (20.0-44.0); MEAN CORPUSCULAR HGB CONC 34 g/dl (31.0-36.0); MEAN CORPUSCULAR VOLUME 100 fL (82-100); MONOCYTES # (AUTO) 1.5 /CMM (0.1-1.30); MONOCYTES % (AUTO) 9.9 % (2.0-12.0); NEUTROPHILS # (AUTO) 11.3 /CMM (1.8-8.9); NEUTROPHILS % (AUTO) 76.6 % (43.0-81.0); PLATELET COUNT (AUTO) 109 /CMM (150-450); RED BLOOD CELL COUNT(AUTO) 2.31 MIL/uL (4.0-5.2); WHITE BLOOD COUNT (AUTO) 14.8 K/uL (4.3-11.0)
[2018-12-18 04:51] LABS: CREATININE 5.5 mg/dL (0.6-1.3); MAGNESIUM 2.3 mg/dL (1.8-2.4); PHOSPHORUS 4.7 mg/dL (2.5-4.9); POTASSIUM 3.4 mmol/L (3.5-5.1)
[2018-12-18] MEDS: LEVOTHYROXINE SODIUM 112 MCG TABLET PO SCH (08:28)
[2018-12-18] MEDS: MULTIVITAMINS,THERAGRAN 1 UDTAB TABLET PO SCH (08:28)
[2018-12-18] MEDS: PANTOPRAZOLE 40 MG TABLET.DR PO SCH (08:28)
[2018-12-18] MEDS: OCTREOTIDE 100 MCG/ML VIAL SQ SCH ×3 (08:28→16:25)
[2018-12-18] MEDS: THIAMINE HCL 100 MG TABLET PO SCH (08:28)
[2018-12-18] MEDS: LACTULOSE 10 G/15 ML UDC (PYXIS) PO SCH ×4 (08:28→20:19)
[2018-12-18] MEDS: MIDODRINE HCL (5MG) 5 MG TABLET PO SCH ×3 (08:29→16:26)
[2018-12-18] MEDS: ENSURE ENLIVE 237 ML LIQUID (VANILLA) PO SCH ×2 (09:18→16:26)
[2018-12-18] MEDS: MEROPENEM 500 MG in IV NS 0.9% 50 ML IV SCH ×2 (09:18→20:19)
[2018-12-18] MEDS: MINERAL OIL/PETROLATUM,WHITE 120 GM JAR TP SCH (10:00)
[2018-12-18] MEDS ORDERED: VANCOMYCIN 500 MG in IV D5W 100ml IV SCH (20:00)
[2018-12-19] VITALS (11 sets, daily range): BP systolic 90–102; BP diastolic 52–61
[2018-12-19 04:39] LABS: BASOPHILS # (AUTO) 0.1 /CMM (0.0-0.2); BASOPHILS % (AUTO) 0.5 % (0.0-2.0); EOSINOPHILS % (AUTO) 2.3 % (0.0-6.0); HEMATOCRIT 25 % (33-45); HEMOGLOBIN 8.4 g/dL (11.5-14.8); LYMPHOCYTES # (AUTO) 2.2 /CMM (0.8-4.8); LYMPHOCYTES % (AUTO) 13.1 % (20.0-44.0); MEAN CORPUSCULAR HGB CONC 34 g/dl (31.0-36.0); MEAN CORPUSCULAR VOLUME 100 fL (82-100); MONOCYTES # (AUTO) 1.8 /CMM (0.1-1.30); MONOCYTES % (AUTO) 10.6 % (2.0-12.0); NEUTROPHILS # (AUTO) 12.4 /CMM (1.8-8.9); NEUTROPHILS % (AUTO) 73.5 % (43.0-81.0); RED BLOOD CELL COUNT(AUTO) 2.46 MIL/uL (4.0-5.2); WHITE BLOOD COUNT (AUTO) 16.9 K/uL (4.3-11.0)
[2018-12-19 04:53] LABS: CALCIUM, SERUM 8.2 mg/dL (8.5-10.1); CREATININE 3.9 mg/dL (0.6-1.3); PHOSPHORUS 3.2 mg/dL (2.5-4.9); POTASSIUM 3.5 mmol/L (3.5-5.1)
[2018-12-19 06:05] LABS: EOSINOPHILS % (MANUAL) 4 % (0-4); LYMPHOCYTES % (MANUAL) 5 % (16-48); MONOCYTES % (MANUAL) 8 % (0-11.0); NEUTROPHILS % (MANUAL) 83 (42-76)
[2018-12-19 06:08] LABS: PLATELET COUNT (AUTO) 101 /CMM (150-450)
[2018-12-19] MEDS: OCTREOTIDE 100 MCG/ML VIAL SQ SCH ×3 (09:00→16:40)
[2018-12-19] MEDS ORDERED: VANCOMYCIN 1 GM in IV D5W 250ml IV ONE ×2 (10:00→14:00)
[2018-12-19] MEDS: MEROPENEM 500 MG in IV NS 0.9% 50 ML IV SCH ×2 (10:44→20:18)
[2018-12-19] MEDS: MIDODRINE HCL (5MG) 5 MG TABLET PO SCH ×3 (10:45→16:40)
[2018-12-19] MEDS: LEVOTHYROXINE SODIUM 112 MCG TABLET PO SCH (10:45)
[2018-12-19] MEDS: MULTIVITAMINS,THERAGRAN 1 UDTAB TABLET PO SCH (10:45)
[2018-12-19] MEDS: MINERAL OIL/PETROLATUM,WHITE 120 GM JAR TP SCH (10:45)
[2018-12-19] MEDS: THIAMINE HCL 100 MG TABLET PO SCH (10:45)
[2018-12-19] MEDS: PANTOPRAZOLE 40 MG TABLET.DR PO SCH (10:45)
[2018-12-19] MEDS: ENSURE ENLIVE 237 ML LIQUID (VANILLA) PO SCH ×2 (10:46→16:40)
[2018-12-19] MEDS: LACTULOSE 10 G/15 ML UDC (PYXIS) PO SCH (17:00)
[2018-12-20] VITALS (7 sets, daily range): BP systolic 88–118; BP diastolic 54–70
[2018-12-20 06:28] LABS: BASOPHILS # (AUTO) 0.1 /CMM (0.0-0.2); BASOPHILS % (AUTO) 0.5 % (0.0-2.0); EOSINOPHILS % (AUTO) 3.9 % (0.0-6.0); HEMATOCRIT 23 % (33-45); HEMOGLOBIN 7.7 g/dL (11.5-14.8); LYMPHOCYTES % (AUTO) 12.3 % (20.0-44.0); MEAN CORPUSCULAR HGB CONC 34 g/dl (31.0-36.0); MEAN CORPUSCULAR VOLUME 99 fL (82-100); MONOCYTES # (AUTO) 1.5 /CMM (0.1-1.30); MONOCYTES % (AUTO) 9.8 % (2.0-12.0); NEUTROPHILS # (AUTO) 11.6 /CMM (1.8-8.9); NEUTROPHILS % (AUTO) 73.5 % (43.0-81.0); PLATELET COUNT (AUTO) 76 /CMM (150-450); RED BLOOD CELL COUNT(AUTO) 2.27 MIL/uL (4.0-5.2); WHITE BLOOD COUNT (AUTO) 15.8 K/uL (4.3-11.0)
[2018-12-20 06:34] LABS: CALCIUM, SERUM 7.9 mg/dL (8.5-10.1); CREATININE 3.2 mg/dL (0.6-1.3); POTASSIUM 3.8 mmol/L (3.5-5.1)
[2018-12-20] MEDS: MINERAL OIL/PETROLATUM,WHITE 120 GM JAR TP SCH (08:33)
[2018-12-20] MEDS: LEVOTHYROXINE SODIUM 112 MCG TABLET PO SCH (08:33)
[2018-12-20] MEDS: OCTREOTIDE 100 MCG/ML VIAL SQ SCH ×3 (08:34→17:29)
[2018-12-20] MEDS: LACTULOSE 10 G/15 ML UDC (PYXIS) PO SCH ×3 (08:34→17:00)
[2018-12-20] MEDS: MEROPENEM 500 MG in IV NS 0.9% 50 ML IV SCH ×2 (08:35→20:09)
[2018-12-20] MEDS: ENSURE ENLIVE 237 ML LIQUID (VANILLA) PO SCH ×2 (08:37→17:29)
[2018-12-20] MEDS: THIAMINE HCL 100 MG TABLET PO SCH (08:37)
[2018-12-20] MEDS: MULTIVITAMINS,THERAGRAN 1 UDTAB TABLET PO SCH (08:37)
[2018-12-20] MEDS: PANTOPRAZOLE 40 MG TABLET.DR PO SCH (08:37)
[2018-12-20] MEDS: MIDODRINE HCL (5MG) 5 MG TABLET PO SCH ×3 (08:39→17:29)
[2018-12-20] MEDS ORDERED: EPOETIN ALFA (10,000 UNIT) 10,000 UNIT/ML VIAL IV ONE (12:00)
[2018-12-20 12:57] LABS: PLATELET COUNT (AUTO) 83 /CMM (150-450)
[2018-12-20 13:16] LABS: D-DIMER > 35.20 mg/L(FEU (0.17-0.50)
[2018-12-20] MEDS: PHENYLEPHRINE/SHK LV/MO/PET,WH 30 GM TUBE RC PRN (17:36)
[2018-12-20 20:01] LABS: BASOPHILS # (AUTO) 0.1 /CMM (0.0-0.2); BASOPHILS % (AUTO) 0.5 % (0.0-2.0); EOSINOPHILS % (AUTO) 1.6 % (0.0-6.0); HEMATOCRIT 26 % (33-45); HEMOGLOBIN 8.5 g/dL (11.5-14.8); LYMPHOCYTES # (AUTO) 2.3 /CMM (0.8-4.8); LYMPHOCYTES % (AUTO) 11.6 % (20.0-44.0); MEAN CORPUSCULAR HGB CONC 33 g/dl (31.0-36.0); MEAN CORPUSCULAR VOLUME 100 fL (82-100); MONOCYTES # (AUTO) 1.6 /CMM (0.1-1.30); MONOCYTES % (AUTO) 7.9 % (2.0-12.0); NEUTROPHILS # (AUTO) 15.5 /CMM (1.8-8.9); NEUTROPHILS % (AUTO) 78.4 % (43.0-81.0); PLATELET COUNT (AUTO) 81 /CMM (150-450); RED BLOOD CELL COUNT(AUTO) 2.54 MIL/uL (4.0-5.2); WHITE BLOOD COUNT (AUTO) 19.8 K/uL (4.3-11.0)
[2018-12-20 20:44] LABS: BAND % (MANUAL) 15 % (0.0-5.0); EOSINOPHILS % (MANUAL) 2 % (0-4); LYMPHOCYTES % (MANUAL) 15 % (16-48); MONOCYTES % (MANUAL) 9 % (0-11.0); NEUTROPHILS % (MANUAL) 59 (42-76)
[2018-12-21] VITALS (11 sets, daily range): BP systolic 92–100; BP diastolic 55–61
[2018-12-21 06:23] LABS: BASOPHILS # (AUTO) 0.1 /CMM (0.0-0.2); BASOPHILS % (AUTO) 0.5 % (0.0-2.0); EOSINOPHILS % (AUTO) 3.1 % (0.0-6.0); HEMATOCRIT 21 % (33-45); HEMOGLOBIN 7.1 g/dL (11.5-14.8); LYMPHOCYTES # (AUTO) 2.8 /CMM (0.8-4.8); LYMPHOCYTES % (AUTO) 17.1 % (20.0-44.0); MEAN CORPUSCULAR HGB CONC 34 g/dl (31.0-36.0); MEAN CORPUSCULAR VOLUME 99 fL (82-100); MONOCYTES # (AUTO) 1.5 /CMM (0.1-1.30); MONOCYTES % (AUTO) 9.1 % (2.0-12.0); NEUTROPHILS # (AUTO) 11.7 /CMM (1.8-8.9); NEUTROPHILS % (AUTO) 70.2 % (43.0-81.0); PLATELET COUNT (AUTO) 74 /CMM (150-450); RED BLOOD CELL COUNT(AUTO) 2.13 MIL/uL (4.0-5.2); WHITE BLOOD COUNT (AUTO) 16.7 K/uL (4.3-11.0)
[2018-12-21 06:25] LABS: CALCIUM, SERUM 8.8 mg/dL (8.5-10.1); CREATININE 2.6 mg/dL (0.6-1.3); POTASSIUM 3.9 mmol/L (3.5-5.1)
[2018-12-21 07:33] LABS: EOSINOPHILS % (MANUAL) 2 % (0-4); LYMPHOCYTES % (MANUAL) 12 % (16-48); MONOCYTES % (MANUAL) 4 % (0-11.0); NEUTROPHILS % (MANUAL) 82 (42-76)
[2018-12-21] MEDS: PANTOPRAZOLE 40 MG TABLET.DR PO SCH (07:46)
[2018-12-21] MEDS: LACTULOSE 10 G/15 ML UDC (PYXIS) PO SCH ×3 (08:06→16:21)
[2018-12-21] MEDS: MULTIVITAMINS,THERAGRAN 1 UDTAB TABLET PO SCH (08:07)
[2018-12-21] MEDS: MIDODRINE HCL (5MG) 5 MG TABLET PO SCH ×3 (08:07→16:26)
[2018-12-21] MEDS: LEVOTHYROXINE SODIUM 112 MCG TABLET PO SCH (08:07)
[2018-12-21] MEDS: THIAMINE HCL 100 MG TABLET PO SCH (08:07)
[2018-12-21] MEDS: MINERAL OIL/PETROLATUM,WHITE 120 GM JAR TP SCH (08:12)
[2018-12-21] MEDS: OCTREOTIDE 100 MCG/ML VIAL SQ SCH ×3 (08:48→16:25)
[2018-12-21] MEDS: MEROPENEM 500 MG in IV NS 0.9% 50 ML IV SCH ×2 (08:54→21:03)
[2018-12-21] MEDS: ENSURE ENLIVE 237 ML LIQUID (VANILLA) PO SCH ×2 (09:10→16:21)
[2018-12-21] MEDS ORDERED: PHYTONADIONE INJ 10 MG/1 ML AMPUL SQ ONE (18:00)
[2018-12-21 18:36] LABS: HEMOGLOBIN 7.4 g/dL (11.5-14.8)
[2018-12-22 03:06] LABS: HEPATITIS Be AB Negative (Negative)
[2018-12-22 07:05] LABS: BASOPHILS # (AUTO) 0.1 /CMM (0.0-0.2); BASOPHILS % (AUTO) 0.7 % (0.0-2.0); EOSINOPHILS % (AUTO) 3.2 % (0.0-6.0); HEMATOCRIT 22 % (33-45); HEMOGLOBIN 7.4 g/dL (11.5-14.8); LYMPHOCYTES # (AUTO) 3.2 /CMM (0.8-4.8); LYMPHOCYTES % (AUTO) 15.5 % (20.0-44.0); MEAN CORPUSCULAR HGB CONC 33 g/dl (31.0-36.0); MEAN CORPUSCULAR VOLUME 100 fL (82-100); MONOCYTES # (AUTO) 1.8 /CMM (0.1-1.30); MONOCYTES % (AUTO) 8.6 % (2.0-12.0); NEUTROPHILS # (AUTO) 14.7 /CMM (1.8-8.9); PLATELET COUNT (AUTO) 101 /CMM (150-450); RED BLOOD CELL COUNT(AUTO) 2.23 MIL/uL (4.0-5.2); WHITE BLOOD COUNT (AUTO) 20.5 K/uL (4.3-11.0)
[2018-12-22 07:40] LABS: CREATININE 2.4 mg/dL (0.6-1.3); POTASSIUM 3.8 mmol/L (3.5-5.1)
[2018-12-22] MEDS: PANTOPRAZOLE 40 MG TABLET.DR PO SCH (07:49)
[2018-12-22 08:00] VITALS: BP 96/55
[2018-12-22] MEDS: MULTIVITAMINS,THERAGRAN 1 UDTAB TABLET PO SCH (08:00)
[2018-12-22] MEDS: LACTULOSE 10 G/15 ML UDC (PYXIS) PO SCH ×3 (08:00→17:00)
[2018-12-22] MEDS: MEROPENEM 500 MG in IV NS 0.9% 50 ML IV SCH ×2 (08:00→20:12)
[2018-12-22] MEDS: MIDODRINE HCL (5MG) 5 MG TABLET PO SCH ×3 (08:00→17:09)
[2018-12-22] MEDS: LEVOTHYROXINE SODIUM 112 MCG TABLET PO SCH (08:01)
[2018-12-22] MEDS: THIAMINE HCL 100 MG TABLET PO SCH (08:01)
[2018-12-22] MEDS: ENSURE ENLIVE 237 ML LIQUID (VANILLA) PO SCH ×2 (08:11→17:07)
[2018-12-22] MEDS: MINERAL OIL/PETROLATUM,WHITE 120 GM JAR TP SCH (08:11)
[2018-12-22] MEDS: FOLIC ACID 1 MG TABLET PO SCH (08:13)
[2018-12-22] MEDS: OCTREOTIDE 100 MCG/ML VIAL SQ SCH ×3 (09:54→17:14)
[2018-12-22 12:51] LABS: OCCULT BLOOD STOOL POSITIVE (NEGATIVE)
[2018-12-22 15:49] VITALS: BP 100/48
[2018-12-22 18:49] LABS: HEMOGLOBIN 7.4 g/dL (11.5-14.8)
[2018-12-22 20:00] VITALS: BP 101/60
[2018-12-23 08:00] VITALS: BP 91/59
[2018-12-23 08:16] LABS: BASOPHILS # (AUTO) 0.2 /CMM (0.0-0.2); BASOPHILS % (AUTO) 0.8 % (0.0-2.0); EOSINOPHILS % (AUTO) 1.8 % (0.0-6.0); HEMATOCRIT 23 % (33-45); HEMOGLOBIN 7.7 g/dL (11.5-14.8); LYMPHOCYTES # (AUTO) 3.2 /CMM (0.8-4.8); LYMPHOCYTES % (AUTO) 14.5 % (20.0-44.0); MEAN CORPUSCULAR HGB CONC 33 g/dl (31.0-36.0); MEAN CORPUSCULAR VOLUME 99 fL (82-100); MONOCYTES # (AUTO) 1.8 /CMM (0.1-1.30); MONOCYTES % (AUTO) 8.2 % (2.0-12.0); NEUTROPHILS # (AUTO) 16.7 /CMM (1.8-8.9); NEUTROPHILS % (AUTO) 74.7 % (43.0-81.0); PLATELET COUNT (AUTO) 141 /CMM (150-450); RED BLOOD CELL COUNT(AUTO) 2.33 MIL/uL (4.0-5.2); WHITE BLOOD COUNT (AUTO) 22.3 K/uL (4.3-11.0)
[2018-12-23] MEDS: OCTREOTIDE 100 MCG/ML VIAL SQ SCH ×3 (08:17→16:57)
[2018-12-23] MEDS: MEROPENEM 500 MG in IV NS 0.9% 50 ML IV SCH ×2 (08:18→21:00)
[2018-12-23] MEDS: MINERAL OIL/PETROLATUM,WHITE 120 GM JAR TP SCH (08:18)
[2018-12-23] MEDS: LEVOTHYROXINE SODIUM 112 MCG TABLET PO SCH (08:19)
[2018-12-23] MEDS: THIAMINE HCL 100 MG TABLET PO SCH (08:19)
[2018-12-23] MEDS: LACTULOSE 10 G/15 ML UDC (PYXIS) PO SCH ×3 (08:19→16:57)
[2018-12-23] MEDS: FOLIC ACID 1 MG TABLET PO SCH (08:19)
[2018-12-23] MEDS: MIDODRINE HCL (5MG) 5 MG TABLET PO SCH ×3 (08:20→16:58)
[2018-12-23] MEDS: PANTOPRAZOLE 40 MG TABLET.DR PO SCH (08:20)
[2018-12-23] MEDS: ENSURE ENLIVE 237 ML LIQUID (VANILLA) PO SCH ×2 (08:20→16:57)
[2018-12-23] MEDS: MULTIVITAMINS,THERAGRAN 1 UDTAB TABLET PO SCH (08:20)
[2018-12-23 08:39] LABS: CALCIUM, SERUM 7.9 mg/dL (8.5-10.1); CREATININE 3.5 mg/dL (0.6-1.3); POTASSIUM 3.9 mmol/L (3.5-5.1)
[2018-12-23 15:06] LABS: AFP, TUMOR MARKER 2.7 ng/mL (0.0-8.3)
[2018-12-23 16:05] VITALS: BP 88/43
[2018-12-23 18:08] LABS: HEMOGLOBIN 7.5 g/dL (11.5-14.8)
[2018-12-23] MEDS ORDERED: VANCOMYCIN 1 GM in IV D5W 250 ML IV ONE (18:30)
[2018-12-23 20:00] VITALS: BP 109/67
[2018-12-24 06:53] LABS: BASOPHILS # (AUTO) 0.2 /CMM (0.0-0.2); BASOPHILS % (AUTO) 0.9 % (0.0-2.0); EOSINOPHILS % (AUTO) 2.7 % (0.0-6.0); HEMATOCRIT 22 % (33-45); HEMOGLOBIN 7.4 g/dL (11.5-14.8); LYMPHOCYTES # (AUTO) 2.4 /CMM (0.8-4.8); LYMPHOCYTES % (AUTO) 12.9 % (20.0-44.0); MEAN CORPUSCULAR HGB CONC 34 g/dl (31.0-36.0); MEAN CORPUSCULAR VOLUME 99 fL (82-100); MONOCYTES # (AUTO) 1.7 /CMM (0.1-1.30); MONOCYTES % (AUTO) 9.3 % (2.0-12.0); NEUTROPHILS # (AUTO) 13.6 /CMM (1.8-8.9); NEUTROPHILS % (AUTO) 74.2 % (43.0-81.0); PLATELET COUNT (AUTO) 120 /CMM (150-450); RED BLOOD CELL COUNT(AUTO) 2.19 MIL/uL (4.0-5.2); WHITE BLOOD COUNT (AUTO) 18.3 K/uL (4.3-11.0)
[2018-12-24 07:22] LABS: CALCIUM, SERUM 7.7 mg/dL (8.5-10.1); CREATININE 2.9 mg/dL (0.6-1.3); POTASSIUM 4.1 mmol/L (3.5-5.1)
[2018-12-24 08:15] VITALS: BP 106/62
[2018-12-24] MEDS: MIDODRINE HCL (5MG) 5 MG TABLET PO SCH ×3 (09:00→17:00)
[2018-12-24] MEDS: FOLIC ACID 1 MG TABLET PO SCH (09:24)
[2018-12-24] MEDS: LEVOTHYROXINE SODIUM 112 MCG TABLET PO SCH (09:24)
[2018-12-24] MEDS: LACTULOSE 10 G/15 ML UDC (PYXIS) PO SCH ×3 (09:24→17:33)
[2018-12-24] MEDS: PANTOPRAZOLE 40 MG TABLET.DR PO SCH (09:24)
[2018-12-24] MEDS: THIAMINE HCL 100 MG TABLET PO SCH (09:24)
[2018-12-24] MEDS: MULTIVITAMINS,THERAGRAN 1 UDTAB TABLET PO SCH (09:24)
[2018-12-24] MEDS: ENSURE ENLIVE 237 ML LIQUID (VANILLA) PO SCH ×2 (09:25→17:31)
[2018-12-24] MEDS: MINERAL OIL/PETROLATUM,WHITE 120 GM JAR TP SCH (09:27)
[2018-12-24] MEDS: OCTREOTIDE 100 MCG/ML VIAL SQ SCH ×3 (09:42→17:31)
[2018-12-24] MEDS: MEROPENEM 500 MG in IV NS 0.9% 50 ML IV SCH ×2 (09:48→20:31)
[2018-12-24 16:07] VITALS: BP 99/59
[2018-12-24 20:00] VITALS: BP 106/60
[2018-12-25 06:57] LABS: ALBUMIN 2.1 g/dL (3.4-5.0); BILIRUBIN,DIRECT 1.8 mg/dL (0.0-0.2); BILIRUBIN,TOTAL 3.5 mg/dL (0.2-1.0); CALCIUM, SERUM 7.6 mg/dL (8.5-10.1); CREATININE 3.7 mg/dL (0.6-1.3); POTASSIUM 3.7 mmol/L (3.5-5.1); TOTAL PROTEIN, SERUM 5.3 g/dL (6.4-8.2)
[2018-12-25 07:07] LABS: BASOPHILS # (AUTO) 0.1 /CMM (0.0-0.2); BASOPHILS % (AUTO) 0.9 % (0.0-2.0); EOSINOPHILS % (AUTO) 2.4 % (0.0-6.0); LYMPHOCYTES # (AUTO) 2.3 /CMM (0.8-4.8); LYMPHOCYTES % (AUTO) 14.2 % (20.0-44.0); MEAN CORPUSCULAR HGB CONC 34 g/dl (31.0-36.0); MEAN CORPUSCULAR VOLUME 99 fL (82-100); MONOCYTES # (AUTO) 1.5 /CMM (0.1-1.30); MONOCYTES % (AUTO) 9.3 % (2.0-12.0); NEUTROPHILS % (AUTO) 73.2 % (43.0-81.0); PLATELET COUNT (AUTO) 125 /CMM (150-450); RED BLOOD CELL COUNT(AUTO) 2.03 MIL/uL (4.0-5.2); WHITE BLOOD COUNT (AUTO) 16.4 K/uL (4.3-11.0)
[2018-12-25 07:22] LABS: HEMATOCRIT 20 % (33-45); HEMOGLOBIN 6.8 g/dL (11.5-14.8)
[2018-12-25 08:16] VITALS: BP 115/61
[2018-12-25] MEDS: LEVOTHYROXINE SODIUM 112 MCG TABLET PO SCH (08:37)
[2018-12-25] MEDS: MIDODRINE HCL (5MG) 5 MG TABLET PO SCH ×3 (08:37→16:49)
[2018-12-25] MEDS: PANTOPRAZOLE 40 MG TABLET.DR PO SCH (08:37)
[2018-12-25] MEDS: THIAMINE HCL 100 MG TABLET PO SCH (08:37)
[2018-12-25] MEDS: FOLIC ACID 1 MG TABLET PO SCH (08:37)
[2018-12-25] MEDS: MULTIVITAMINS,THERAGRAN 1 UDTAB TABLET PO SCH (08:37)
[2018-12-25] MEDS: MINERAL OIL/PETROLATUM,WHITE 120 GM JAR TP SCH (08:38)
[2018-12-25] MEDS: ENSURE ENLIVE 237 ML LIQUID (VANILLA) PO SCH ×2 (08:39→16:56)
[2018-12-25] MEDS: OCTREOTIDE 100 MCG/ML VIAL SQ SCH (08:40)
[2018-12-25] MEDS: LACTULOSE 10 G/15 ML UDC (PYXIS) PO SCH ×3 (08:45→16:57)
[2018-12-25] MEDS: MEROPENEM 500 MG in IV NS 0.9% 50 ML IV SCH (08:56)
[2018-12-25 10:00] LABS: EOSINOPHILS % (MANUAL) 2 % (0-4); LYMPHOCYTES % (MANUAL) 11 % (16-48); MONOCYTES % (MANUAL) 7 % (0-11.0); NEUTROPHILS % (MANUAL) 80 (42-76)
[2018-12-25 11:11] LABS: *SPE A/G RATIO 0.8 (0.7-1.7); *SPE ALBUMIN 2.5 g/dL (2.9-4.4); *SPE ALPHA-1-GLOBULIN 0.3 g/dL (0.0-0.4); *SPE ALPHA-2-GLOBULIN 0.6 g/dL (0.4-1.0); *SPE BETA GLOBULIN 0.6 g/dL (0.7-1.3); *SPE M-SPIKE 0.4 g/dL (Not Observed); *SPEGAMMA GLOBULIN 1.5 g/dL (0.4-1.8)
[2018-12-25] MEDS ORDERED: EPOETIN ALFA (10,000 UNIT) 10,000 UNIT/ML VIAL IV ONE (14:00)
[2018-12-25 16:07] VITALS: BP 102/59
[2018-12-25 18:15] LABS: HEMOGLOBIN 7.2 g/dL (11.5-14.8)
[2018-12-25 20:00] VITALS: BP 107/64
[2018-12-25 20:05] VITALS: BP 107/64
[2018-12-25] MEDS: CEFTRIAXONE 1 G in IV D5W 50 ML IV SCH (22:04)
[2018-12-26 02:00] VITALS: BP 102/61
[2018-12-26 07:28] LABS: BASOPHILS # (AUTO) 0.1 /CMM (0.0-0.2); BASOPHILS % (AUTO) 0.7 % (0.0-2.0); EOSINOPHILS % (AUTO) 1.6 % (0.0-6.0); LYMPHOCYTES # (AUTO) 2.6 /CMM (0.8-4.8); LYMPHOCYTES % (AUTO) 14.5 % (20.0-44.0); MEAN CORPUSCULAR HGB CONC 34 g/dl (31.0-36.0); MEAN CORPUSCULAR VOLUME 99 fL (82-100); NEUTROPHILS # (AUTO) 12.9 /CMM (1.8-8.9); NEUTROPHILS % (AUTO) 72.2 % (43.0-81.0); PLATELET COUNT (AUTO) 115 /CMM (150-450); RED BLOOD CELL COUNT(AUTO) 2.01 MIL/uL (4.0-5.2); WHITE BLOOD COUNT (AUTO) 17.9 K/uL (4.3-11.0)
[2018-12-26] MEDS: PANTOPRAZOLE 40 MG TABLET.DR PO SCH (07:30)
[2018-12-26 07:37] LABS: HEMOGLOBIN 6.7 g/dL (11.5-14.8)
[2018-12-26 07:38] LABS: HEMATOCRIT 20 % (33-45)
[2018-12-26 07:39] LABS: ALBUMIN 2.1 g/dL (3.4-5.0); BILIRUBIN,TOTAL 3.2 mg/dL (0.2-1.0); CALCIUM, SERUM 7.5 mg/dL (8.5-10.1); CREATININE 2.7 mg/dL (0.6-1.3); MAGNESIUM 1.6 mg/dL (1.8-2.4); PHOSPHORUS 2.9 mg/dL (2.5-4.9); POTASSIUM 3.7 mmol/L (3.5-5.1); TOTAL PROTEIN, SERUM 5.2 g/dL (6.4-8.2)
[2018-12-26 08:00] VITALS: BP 96/53
[2018-12-26] MEDS: MINERAL OIL/PETROLATUM,WHITE 120 GM JAR TP SCH (09:00)
[2018-12-26] MEDS: ENSURE ENLIVE 237 ML LIQUID (VANILLA) PO SCH ×2 (09:00→17:00)
[2018-12-26] MEDS: FOLIC ACID 1 MG TABLET PO SCH (09:28)
[2018-12-26] MEDS: LACTULOSE 10 G/15 ML UDC (PYXIS) PO SCH ×3 (09:28→17:00)
[2018-12-26] MEDS: MULTIVITAMINS,THERAGRAN 1 UDTAB TABLET PO SCH (09:31)
[2018-12-26] MEDS: THIAMINE HCL 100 MG TABLET PO SCH (09:31)
[2018-12-26] MEDS: LEVOTHYROXINE SODIUM 112 MCG TABLET PO SCH (09:32)
[2018-12-26] MEDS: MIDODRINE HCL (5MG) 5 MG TABLET PO SCH ×3 (09:33→17:57)
[2018-12-26 09:57] LABS: LYMPHOCYTES % (MANUAL) 11 % (16-48); MONOCYTES % (MANUAL) 9 % (0-11.0); NEUTROPHILS % (MANUAL) 80 (42-76)
[2018-12-26 15:12] VITALS: BP 109/74
[2018-12-26 15:31] VITALS: BP 105/72
[2018-12-26 16:00] VITALS: BP_SYST 109; BP_SYST 86; BP_DIAS 54; BP_DIAS 66
[2018-12-26 17:37] VITALS: BP 98/63
[2018-12-26] MEDS: CEFTRIAXONE 1 G in IV D5W 50 ML IV SCH (19:49)
[2018-12-26] MEDS ORDERED: PEG 3350/NA SULF,BICARB,CL/KCL 4,000 ML BOTTLE PO ONE (20:00)
[2018-12-26] MEDS ORDERED: PHYTONADIONE INJ 10 MG/1 ML AMPUL SQ ONE (20:00)
[2018-12-26] MEDS ORDERED: MAGNESIUM CITRATE 296 ML BOTTLE PO ONE (21:00)
[2018-12-27] VITALS (8 sets, daily range): BP systolic 94–121; BP diastolic 48–63
[2018-12-27] MEDS: PANTOPRAZOLE 40 MG TABLET.DR PO SCH (07:30)
[2018-12-27 08:42] LABS: BASOPHILS # (AUTO) 0.2 /CMM (0.0-0.2); BASOPHILS % (AUTO) 0.9 % (0.0-2.0); EOSINOPHILS % (AUTO) 2.1 % (0.0-6.0); HEMATOCRIT 23 % (33-45); LYMPHOCYTES # (AUTO) 1.7 /CMM (0.8-4.8); LYMPHOCYTES % (AUTO) 9.1 % (20.0-44.0); MEAN CORPUSCULAR HGB CONC 34 g/dl (31.0-36.0); MEAN CORPUSCULAR VOLUME 95 fL (82-100); MONOCYTES # (AUTO) 1.6 /CMM (0.1-1.30); MONOCYTES % (AUTO) 8.9 % (2.0-12.0); NEUTROPHILS # (AUTO) 14.3 /CMM (1.8-8.9); PLATELET COUNT (AUTO) 116 /CMM (150-450); RED BLOOD CELL COUNT(AUTO) 2.47 MIL/uL (4.0-5.2); WHITE BLOOD COUNT (AUTO) 18.1 K/uL (4.3-11.0)
[2018-12-27] MEDS: FOLIC ACID 1 MG TABLET PO SCH (09:00)
[2018-12-27] MEDS: MULTIVITAMINS,THERAGRAN 1 UDTAB TABLET PO SCH (09:00)
[2018-12-27] MEDS: LACTULOSE 10 G/15 ML UDC (PYXIS) PO SCH ×3 (09:00→17:00)
[2018-12-27] MEDS: ENSURE ENLIVE 237 ML LIQUID (VANILLA) PO SCH ×2 (09:00→18:00)
[2018-12-27] MEDS: MIDODRINE HCL (5MG) 5 MG TABLET PO SCH ×3 (09:00→17:00)
[2018-12-27] MEDS: LEVOTHYROXINE SODIUM 112 MCG TABLET PO SCH (09:00)
[2018-12-27] MEDS: THIAMINE HCL 100 MG TABLET PO SCH (09:00)
[2018-12-27] MEDS ORDERED: ANESTHESIA TRAY IN PYXIS 1 EA TRAY MC ONE (10:01)
[2018-12-27] MEDS: MINERAL OIL/PETROLATUM,WHITE 120 GM JAR TP SCH (12:26)
[2018-12-27] MEDS: ALPRAZOLAM 0.25 MG TABLET PO PRN (17:36)
[2018-12-27] MEDS: CEFTRIAXONE 1 G in IV D5W 50 ML IV SCH (19:55)
[2018-12-28] MEDS: ALPRAZOLAM 0.25 MG TABLET PO PRN (03:46)
[2018-12-28 07:25] LABS: BASOPHILS # (AUTO) 0.1 /CMM (0.0-0.2); BASOPHILS % (AUTO) 0.6 % (0.0-2.0); EOSINOPHILS % (AUTO) 3.7 % (0.0-6.0); HEMATOCRIT 22 % (33-45); HEMOGLOBIN 7.5 g/dL (11.5-14.8); LYMPHOCYTES # (AUTO) 2.2 /CMM (0.8-4.8); LYMPHOCYTES % (AUTO) 12.6 % (20.0-44.0); MEAN CORPUSCULAR HGB CONC 33 g/dl (31.0-36.0); MEAN CORPUSCULAR VOLUME 96 fL (82-100); MONOCYTES # (AUTO) 1.7 /CMM (0.1-1.30); MONOCYTES % (AUTO) 9.4 % (2.0-12.0); NEUTROPHILS # (AUTO) 12.9 /CMM (1.8-8.9); NEUTROPHILS % (AUTO) 73.7 % (43.0-81.0); PLATELET COUNT (AUTO) 95 /CMM (150-450); RED BLOOD CELL COUNT(AUTO) 2.34 MIL/uL (4.0-5.2); WHITE BLOOD COUNT (AUTO) 17.5 K/uL (4.3-11.0)
[2018-12-28 08:00] VITALS: BP 134/103
[2018-12-28] MEDS: PANTOPRAZOLE 40 MG TABLET.DR PO SCH (08:30)
[2018-12-28] MEDS: MINERAL OIL/PETROLATUM,WHITE 120 GM JAR TP SCH (08:38)
[2018-12-28] MEDS: THIAMINE HCL 100 MG TABLET PO SCH (08:39)
[2018-12-28] MEDS: FOLIC ACID 1 MG TABLET PO SCH (08:39)
[2018-12-28] MEDS: MULTIVITAMINS,THERAGRAN 1 UDTAB TABLET PO SCH (08:39)
[2018-12-28] MEDS: LEVOTHYROXINE SODIUM 112 MCG TABLET PO SCH (08:39)
[2018-12-28] MEDS: MIDODRINE HCL (5MG) 5 MG TABLET PO SCH ×3 (08:40→17:00)
[2018-12-28] MEDS: ENSURE ENLIVE 237 ML LIQUID (VANILLA) PO SCH ×2 (08:41→17:00)
[2018-12-28] MEDS: LACTULOSE 10 G/15 ML UDC (PYXIS) PO SCH ×3 (08:42→17:00)
[2018-12-28 13:25] VITALS: BP 96/54
[2018-12-28 15:45] VITALS: BP 100/55
[2018-12-28] MEDS ORDERED: FENTANYL PF 100MCG/2ML AMPUL ONE (17:26)
[2018-12-28] MEDS ORDERED: LIDOCAINE HCL/MPF 1% 30 ML VIAL IJ ONE (17:33)
[2018-12-28] MEDS ORDERED: CEFAZOLIN 1 GM ONE (17:33)
[2018-12-28] MEDS ORDERED: HEPARIN SODIUM, PORCINE 1,000 UNIT/ML VIAL ONE (17:33)
[2018-12-28 18:45] VITALS: BP 102/61
[2018-12-28 18:55] VITALS: BP 102/61
[2018-12-28 20:00] VITALS: BP 98/63
[2018-12-28] MEDS: CEFTRIAXONE 1 G in IV D5W 50 ML IV SCH (20:48)
[2018-12-29] MEDS: PANTOPRAZOLE 40 MG TABLET.DR PO SCH (07:30)
[2018-12-29 08:37] VITALS: BP 143/58
[2018-12-29 08:43] LABS: BASOPHILS # (AUTO) 0.1 /CMM (0.0-0.2); BASOPHILS % (AUTO) 0.6 % (0.0-2.0); EOSINOPHILS % (AUTO) 3.2 % (0.0-6.0); HEMATOCRIT 23 % (33-45); HEMOGLOBIN 7.7 g/dL (11.5-14.8); LYMPHOCYTES # (AUTO) 1.8 /CMM (0.8-4.8); LYMPHOCYTES % (AUTO) 10.3 % (20.0-44.0); MEAN CORPUSCULAR HGB CONC 33 g/dl (31.0-36.0); MEAN CORPUSCULAR VOLUME 96 fL (82-100); MONOCYTES # (AUTO) 1.4 /CMM (0.1-1.30); MONOCYTES % (AUTO) 8.1 % (2.0-12.0); NEUTROPHILS # (AUTO) 13.5 /CMM (1.8-8.9); NEUTROPHILS % (AUTO) 77.8 % (43.0-81.0); PLATELET COUNT (AUTO) 87 /CMM (150-450); RED BLOOD CELL COUNT(AUTO) 2.39 MIL/uL (4.0-5.2)
[2018-12-29] MEDS: LACTULOSE 10 G/15 ML UDC (PYXIS) PO SCH ×3 (09:00→17:33)
[2018-12-29] MEDS: THIAMINE HCL 100 MG TABLET PO SCH (09:00)
[2018-12-29] MEDS: MIDODRINE HCL (5MG) 5 MG TABLET PO SCH ×3 (09:00→17:33)
[2018-12-29] MEDS: LEVOTHYROXINE SODIUM 112 MCG TABLET PO SCH (09:00)
[2018-12-29] MEDS: MULTIVITAMINS,THERAGRAN 1 UDTAB TABLET PO SCH (09:00)
[2018-12-29] MEDS: FOLIC ACID 1 MG TABLET PO SCH (09:00)
[2018-12-29 09:37] LABS: EOSINOPHILS % (MANUAL) 2 % (0-4); LYMPHOCYTES % (MANUAL) 7 % (16-48); MONOCYTES % (MANUAL) 4 % (0-11.0); NEUTROPHILS % (MANUAL) 87 (42-76)
[2018-12-29] MEDS: ENSURE ENLIVE 237 ML LIQUID (VANILLA) PO SCH (10:17)
[2018-12-29] MEDS: MINERAL OIL/PETROLATUM,WHITE 120 GM JAR TP SCH (10:18)
[2018-12-29 15:33] VITALS: BP 114/63
[2018-12-29 20:00] VITALS: BP 113/67
[2018-12-29] MEDS: CEFTRIAXONE 1 G in IV D5W 50 ML IV SCH (20:19)
[2018-12-30 08:00] VITALS: BP 121/79
[2018-12-30] MEDS: PANTOPRAZOLE 40 MG TABLET.DR PO SCH (08:18)
[2018-12-30 08:22] LABS: BASOPHILS # (AUTO) 0.1 /CMM (0.0-0.2); BASOPHILS % (AUTO) 0.4 % (0.0-2.0); EOSINOPHILS % (AUTO) 4.4 % (0.0-6.0); HEMATOCRIT 22 % (33-45); HEMOGLOBIN 7.3 g/dL (11.5-14.8); LYMPHOCYTES # (AUTO) 1.8 /CMM (0.8-4.8); LYMPHOCYTES % (AUTO) 12.3 % (20.0-44.0); MEAN CORPUSCULAR HGB CONC 34 g/dl (31.0-36.0); MEAN CORPUSCULAR VOLUME 95 fL (82-100); MONOCYTES # (AUTO) 1.4 /CMM (0.1-1.30); MONOCYTES % (AUTO) 9.7 % (2.0-12.0); NEUTROPHILS # (AUTO) 10.8 /CMM (1.8-8.9); NEUTROPHILS % (AUTO) 73.2 % (43.0-81.0); PLATELET COUNT (AUTO) 64 /CMM (150-450); RED BLOOD CELL COUNT(AUTO) 2.26 MIL/uL (4.0-5.2); WHITE BLOOD COUNT (AUTO) 14.8 K/uL (4.3-11.0)
[2018-12-30 08:47] LABS: ALANINE AMINOTRANSFERASE < 6 U/L (12-78); ALBUMIN 1.7 g/dL (3.4-5.0); ALKALINE PHOSPHATASE 150 U/L (46-116); ASPARTATE AMINOTRANSFERASE 33 U/L (15-37); BILIRUBIN,TOTAL 3.7 mg/dL (0.2-1.0); CALCIUM, SERUM 7.5 mg/dL (8.5-10.1); CARBON DIOXIDE 27 mmol/L (21-32); CHLORIDE 101 mmol/L (98-107); GLUCOSE 73 mg/dL (74-106); POTASSIUM 3.2 mmol/L (3.5-5.1); SODIUM SERUM 135 mmol/L (136-145); TOTAL PROTEIN, SERUM 5.2 g/dL (6.4-8.2); UREA NITROGEN, BLOOD 12 mg/dL (7-18)
[2018-12-30] MEDS: FOLIC ACID 1 MG TABLET PO SCH (08:48)
[2018-12-30] MEDS: LACTULOSE 10 G/15 ML UDC (PYXIS) PO SCH ×3 (08:48→17:27)
[2018-12-30] MEDS: MULTIVITAMINS,THERAGRAN 1 UDTAB TABLET PO SCH (08:48)
[2018-12-30] MEDS: MINERAL OIL/PETROLATUM,WHITE 120 GM JAR TP SCH (08:49)
[2018-12-30] MEDS: LEVOTHYROXINE SODIUM 112 MCG TABLET PO SCH (08:49)
[2018-12-30] MEDS: THIAMINE HCL 100 MG TABLET PO SCH (08:49)
[2018-12-30] MEDS: MIDODRINE HCL (5MG) 5 MG TABLET PO SCH ×3 (09:03→17:00)
[2018-12-30 10:06] LABS: EOSINOPHILS % (MANUAL) 3 % (0-4); LYMPHOCYTES % (MANUAL) 5 % (16-48); MONOCYTES % (MANUAL) 7 % (0-11.0); NEUTROPHILS % (MANUAL) 85 (42-76)
[2018-12-30 16:00] VITALS: BP 131/82
[2018-12-30] MEDS ORDERED: LEVOFLOXACIN (250MG) 250 MG TABLET PO SCH (18:00)
[2018-12-30 20:00] VITALS: BP 112/60
[2018-12-31 08:00] VITALS: BP 101/60
[2018-12-31] MEDS: LACTULOSE 10 G/15 ML UDC (PYXIS) PO SCH ×3 (08:24→17:00)
[2018-12-31] MEDS: LEVOTHYROXINE SODIUM 112 MCG TABLET PO SCH (08:24)
[2018-12-31] MEDS: THIAMINE HCL 100 MG TABLET PO SCH (08:24)
[2018-12-31] MEDS: FOLIC ACID 1 MG TABLET PO SCH (08:24)
[2018-12-31] MEDS: PANTOPRAZOLE 40 MG TABLET.DR PO SCH (08:24)
[2018-12-31] MEDS: RIFAXIMIN 550 MG TABLET PO SCH ×2 (08:25→16:57)
[2018-12-31] MEDS: MULTIVITAMINS,THERAGRAN 1 UDTAB TABLET PO SCH (08:25)
[2018-12-31] MEDS: MIDODRINE HCL (5MG) 5 MG TABLET PO SCH ×3 (08:26→16:57)
[2018-12-31] MEDS: MINERAL OIL/PETROLATUM,WHITE 120 GM JAR TP SCH (08:27)
[2018-12-31 15:03] LABS: ABG OXYGEN SATURATION 92.2 % (92.0-98.5); ABG PCO2 29.1 mmHg (35.0-45.0); ABG PH 7.509 (7.350-7.450); ABG PO2 63.7 mmHg (75.0-100.0); COHb 1.1 % (0.5-1.5); MetHb 0.8 % (0.0-1.5); O2Hb 90.4 % (94.0-97.0); SITE, ABG Right Radial; VENT MODE, BG RA
[2018-12-31 16:00] VITALS: BP 108/63
[2018-12-31 16:57] VITALS: BP 108/63
== END 2018-12-31 17:30 | disposition home health service (06) | DRG 720 ==
LOC: ER 14:08 → MEDSG2 19:35 → ICU 12-14 20:23 → TELE 12-19 06:22 → MED 12-19 08:30
PROVIDERS: ADMIT Internal Medicine; ATTEND Internal Medicine
PROC: 05H933Z Insertion of Infusion Device into Right Brachial Vein, Percutaneous Approach (ICD-10-PCS; principal; 2018-12-15)
PROC: 0JHD3WZ Insertion of Totally Implantable Vascular Access Device into Right Upper Arm Subcutaneous Tissue and Fascia, Percutaneous Approach (ICD-10-PCS; 2018-12-16)
PROC: 05HM33Z Insertion of Infusion Device into Right Internal Jugular Vein, Percutaneous Approach (ICD-10-PCS; 2018-12-16)
PROC: 5A1D70Z Performance of Urinary Filtration, Intermittent, Less than 6 Hours Per Day (ICD-10-PCS; 2018-12-16)
PROC: B543ZZA Ultrasonography of Right Jugular Veins, Guidance (ICD-10-PCS; 2018-12-16)
PROC: 30233K1 Transfusion of Nonautologous Frozen Plasma into Peripheral Vein, Percutaneous Approach (ICD-10-PCS; 2018-12-20)
PROC: 30233N1 Transfusion of Nonautologous Red Blood Cells into Peripheral Vein, Percutaneous Approach (ICD-10-PCS; 2018-12-26)
PROC: 0DJD8ZZ Inspection of Lower Intestinal Tract, Via Natural or Artificial Opening Endoscopic (ICD-10-PCS; 2018-12-27)
PROC: 0DJ08ZZ Inspection of Upper Intestinal Tract, Via Natural or Artificial Opening Endoscopic (ICD-10-PCS; 2018-12-27)
PROC: 07DR3ZX Extraction of Iliac Bone Marrow, Percutaneous Approach, Diagnostic (ICD-10-PCS; 2018-12-28)
DX: A41.9 Sepsis, unspecified organism (principal); N17.0 Acute kidney failure with tubular necrosis; K76.7 Hepatorenal syndrome; D65 Disseminated intravascular coagulation [defibrination syndrome]; R65.21 Severe sepsis with septic shock; D61.818 Other pancytopenia; J90 Pleural effusion, not elsewhere classified; J18.9 Pneumonia, unspecified organism; G92 Toxic encephalopathy; K76.6 Portal hypertension; E44.1 Mild protein-calorie malnutrition; K70.31 Alcoholic cirrhosis of liver with ascites; E87.1 Hypo-osmolality and hyponatremia; K70.40 Alcoholic hepatic failure without coma; D63.8 Anemia in other chronic diseases classified elsewhere; K21.9 Gastro-esophageal reflux disease without esophagitis; Z88.1 Allergy status to other antibiotic agents; Z79.899 Other long term (current) drug therapy; N18.9 Chronic kidney disease, unspecified; I12.0 Hypertensive chronic kidney disease with stage 5 chronic kidney disease or end stage renal disease; N18.6 End stage renal disease; Z99.2 Dependence on renal dialysis; Z91.19 Patient's noncompliance with other medical treatment and regimen; J98.11 Atelectasis; K31.9 Disease of stomach and duodenum, unspecified; K57.90 Diverticulosis of intestine, part unspecified, without perforation or abscess without bleeding; Y95 Nosocomial condition; F17.200 Nicotine dependence, unspecified, uncomplicated; E83.51 Hypocalcemia; E87.2 Acidosis; E83.39 Other disorders of phosphorus metabolism; F32.9 Major depressive disorder, single episode, unspecified; F41.9 Anxiety disorder, unspecified; I25.10 Atherosclerotic heart disease of native coronary artery without angina pectoris; E87.70 Fluid overload, unspecified; K64.8 Other hemorrhoids; K64.4 Residual hemorrhoidal skin tags; K62.89 Other specified diseases of anus and rectum; D73.1 Hypersplenism; D62 Acute posthemorrhagic anemia; D68.9 Coagulation defect, unspecified; D47.2 Monoclonal gammopathy
CPT/HCPCS: 36415; 36569; 36600; 71045-TC; 76700-TC; 76942-TC; 77075-TC; 80048-TC; 80053-TC; 80076-TC; 80202-TC; 81000-TC; 82040-TC; 82105; 82140-TC; 82232; 82272-TC; 82378; 82728-TC; 82784; 82803-TC; 83540-TC; 83605-TC; 83615-TC; 83735-TC; 83935-TC; 84100-TC; 84155; 84165; 84300-TC; 84443-TC; 84550-TC; 84703-TC; 85025-TC; 85027-TC; 85385-TC; 85396; 85610-TC; 85730-TC; 86301; 86334; 86704; 86705; 86706; 86707; 86803; 86850-TC; 86921-TC; 87040-TC; 87070-TC; 87075-TC; 87081-TC; 87086-TC; 87102-TC; 87340; 87350; 88112-TC; 88305-TC; 88312-TC; 89051-TC; 90935-TC; 92526; 92611-TC; 94799-TC; 97116-TC; 97530-TC; A4216; C1750; C1751; G0378; J0690; J0692; J0696; J0885; J1644; J2185; J2270; J2354; J2405; J2543; J2704; J2765; J3010; J3370; J3430; J3490; J7030; J7050; J7060; P9016-BL; P9017-BL; P9045; P9047